=== PATIENT | female | born 1990 ===

== ENCOUNTER 2020-07-12 12:22 | Emergency (ER) | payer OTHER, SELFPAY ==
--- NOTE | 2020-07-12 | CT_ITS ---
EXAMINATION: CT HEAD WITHOUT CONTRAST CLINICAL INFORMATION: Headache. COMPARISON: None TECHNIQUE: Contiguous axial imaging was performed from the skull base to vertex without intravenous administration of contrast. This CT examination was performed using dose optimization techniques as appropriate, variously including the following: *Automated exposure control *Adjustment of mA and/or kV according to patient size (this includes techniques or standardized protocols for targeted exams where dose is matched to indication/reason for exam; i.e. extremities or head) *Use of iterative reconstruction technique DLP: 613 mGy-cm FINDINGS: There is no evidence of acute intracranial hemorrhage or territorial infarction. No abnormal mass effect or midline shift is seen. Dumas to white matter differentiation is well preserved. No extra-axial fluid collections are identified. Prominent patchy parafalcine areas of ossification noted. The ventricles are normal in size. There is no abnormal attenuation within the brain parenchyma. The osseous structures and soft tissues are normal. The mastoid air cells and visualized portions of the paranasal sinuses are well aerated. IMPRESSION: No acute intracranial pathology. Normal CT scan of the head.
--- NOTE | 2020-07-12 12:42 | ED.HA ---
HPI - Headache General Chief Complaint: Headache Stated Complaint: headache Time Seen by Provider: 07/12/20 12:42 Source: patient Mode of arrival: ambulatory Limitations: no limitations History of Present Illness HPI Narrative: 3 days gradual onset worst today, no trauma, no AC therapy, hx of migraines remotely MD elicited complaint: headache Onset (ago): day(s) (3) Onset description: gradually Location: right, left, temporal and occipital Severity: moderate Quality & Timing: throbbing Exacerbating factors: movement of head/neck Relieving factors: nothing Context: occurred at rest Treatments prior to arrival: acetaminophen and ibuprofen Related Data Allergies Allergy/AdvReac Type Severity Reaction Status Date / Time No Known Allergies Allergy Verified 07/12/20 12:26 Review of Systems Review of Systems: Constitutional : No Fever, No Chills, No Fatigue ENT/Mouth : No sore throat, No Rhinorrhea Eyes: No Eye Pain, No Swelling, No Redness Cardiovascular : No Chest Pain, No SOB, No Dyspnea on Exertion Respiratory : No Cough, No Sputum Gastrointestinal : No Nausea, No Vomiting, No Diarrhea, No abdominal Pain Genitourinary : No Dysuria, No Urinary Frequency, No Hematuria, Musculoskeletal : No joint pain, No Myalgias, No Joint Swelling Skin : No Skin Lesions, No rash Neuro : No Weakness, No Numbness, No Dizziness, positive Headache Psych : No Anxiety/Panic, No Depression Heme/Lymph: No Bruising, No Bleeding,No Lymphadenopathy Endocrine : No Polyuria, No Polydipsia All other systems reviewed and are negative PMFSH Past Medical History Medical History (Updated 07/12/20 @ 12:47 by Neyda Madrid DO) Gastritis Headache Ovarian cyst UTI (urinary tract infection) Social History Social History (Updated 07/12/20 @ 12:46 by Neyda Madrid DO) Alcohol intake: current Alcohol intake frequency: a few times a month Smoking Status: Never smoker Use of substances other than those prescribed or required for medical reasons: No Advance Directives: No Advance Directives Information Provided: Yes Physical Exam Vital Signs and I&O and Narrative: Vital Signs and I&O: Vital Signs Temp 97.7 F 07/12/20 13:14 Pulse 63 07/12/20 13:14 Resp 16 07/12/20 13:14 BP 97/57 L 07/12/20 13:14 Pulse Ox 99 07/12/20 13:14 Intake & Output 07/11/20 07/12/20 07/12/20 18:59 06:59 18:59 Weight 68.039 kg Body Mass Index 30.2 Appearance: Alert. Oriented X3. No acute distress. Eyes: Pupils equal, round and reactive to light. mild photophobia ENT: Pharynx normal. Neck: Normal inspection. Neck supple. no meningeal signs CVS: Normal heart rate and rhythm. Pulses normal. Respiratory: No respiratory distress. Breath sounds normal. Abdomen: Soft and nontender. Skin: Skin warm and dry. Normal skin color. Normal skin turgor. Extremities: No lower extremity edema. No lower extremity edema. Neuro: Oriented X 3. No motor deficit. No sensory deficit. Course Reevaluation(s) Reevaluation #1: no acute findings feels better stable for DC MDM - Headache MDM Narrative Medical decision making narrative: gradual onset headache no AC therapy, no fevers normal neuro exam, not toxic, very concerned will obtain CT head to r/o mass, IM toradol and PO fioricet given lack of fevers, presentation and gradual onset doubt [employer] infection or SAH
[2020-07-12 13:14] VITALS: BP 97/57; PULSE 63; RESP 16; TEMP 36.5; O2SAT 99; BMI 30.2
[2020-07-12] MEDS: Ketorolac Tromethamine 60 MG/2 ML VIAL IM (13:47)
== END 2020-07-12 13:59 | disposition home or self-care (01) ==
PROVIDERS: Emergency Provider Emergency Medicine; PCP Internal Medicine
DX: R51.9 Headache, unspecified (principal)
CPT/HCPCS: 70450; 96372; 99284; J1885

== ENCOUNTER 2020-10-09 12:57 | Outpatient (REF) | payer OTHER, SELFPAY | END 2020-10-09 12:58 | disposition home or self-care (01) | LOC: HO.LAB 12:57 | PROVIDERS: Visit Provider Internal Medicine | DX: Z20.828 Contact with and (suspected) exposure to other viral communicable diseases (principal) | CPT/HCPCS: 36415; C9803; U0003 ==

== ENCOUNTER 2021-01-03 19:16 | Emergency (ER) | payer OTHER, SELFPAY ==
[2021-01-03 19:49] VITALS: BP 110/53; PULSE 74; RESP 18; TEMP 37.1; O2SAT 99; BMI 24.2
[2021-01-03 20:04] LABS: MANUAL DIFF FLAG NO
[2021-01-03 20:10] LABS: Basophils Percent Auto 0.3 % (0-2); Eosinophils Absolute Auto 0.1 X10*3/uL (0.0-0.4); Eosinophils Percent Auto 1.4 % (0-4); Hematocrit 38.4 % (37-47); Hemoglobin 12.7 g/dl (12.0-16.0); Imm Gran Abs Auto 0.01 X10*3/uL (0.00-0.03); Imm Gran Pct Auto 0.2 % (0.0-0.4); Lymphocytes Absolute Auto 1.7 X10*3/uL (1.2-4.9); Lymphocytes Percent Auto 26.2 % (20-40); Mean Corpuscular HGB Conc 33.1 g/dl (31.0-35.0); Mean Corpuscular Hemoglobin 30.5 pg (27.0-33.0); Mean Corpuscular Volume 92.3 fL (80-98); Mean Platelet Volume 9.5 fL (9.4-12.3); Monocytes Absolute Auto 0.5 X10*3/uL (0.1-1.2); Monocytes Percent Auto 7.3 % (2-11); Neutrophils Absolute Auto 4.2 X10*3/uL (2.0-8.3); Neutrophils Percent Auto 64.6 % (45-73); Platelet Count 290 X10*3/uL (160-400); Red Blood Count 4.16 X10*6/uL (4.20-5.50); Red Cell Distribution Width 12.6 % (11.0-16.0); White Blood Count 6.5 X10*3/uL (4.8-10.8)
[2021-01-03 20:30] LABS: Anion Gap 13 (12-20); Blood Urea Nitrogen 13 mg/dL (9-16); Calcium 9.1 mg/dL (8.4-10.2); Carbon Dioxide 26 mmol/L (22-29); Chloride 103 mmol/L (96-108); Creatinine Clr Calc Pharmacy 73.9; Estimated Glomerular Filt Rate > 60; Glucose Random 113 mg/dL (60-115); Potassium 3.9 mmol/L (3.3-5.1); Sodium 138 mmol/L (135-145)
== END 2021-01-03 23:46 | disposition left against medical advice (07) ==
LOC: HO.ED 23:44
PROVIDERS: Emergency Medicine Emergency Medical Services; Emergency Provider Emergency Medicine; PCP Internal Medicine
DX: R51.9 Headache, unspecified (principal)
CPT/HCPCS: 36415; 80048; 85025; 99282; 99283

== ENCOUNTER 2021-01-05 06:52 | Emergency (ER) | payer OTHER, SELFPAY ==
--- NOTE | ~2021-01-05 | CT_ITS ---
EXAMINATION: CT HEAD WITHOUT CONTRAST CLINICAL INFORMATION: Headache COMPARISON: Previous head CT July 2020 TECHNIQUE: Contiguous axial imaging was performed from the skull base to vertex without intravenous administration of contrast. This CT examination was performed using dose optimization techniques as appropriate, variously including the following: *Automated exposure control *Adjustment of mA and/or kV according to patient size (this includes techniques or standardized protocols for targeted exams where dose is matched to indication/reason for exam; i.e. extremities or head) *Use of iterative reconstruction technique DLP: 630 mGy-cm FINDINGS: There is no evidence of an extra-axial collection. There is no evidence of intra-axial or extra-axial hemorrhage. There are scattered areas of dural ossification that are stable. The largest is in the right parafalcine region measuring 0.7 x 1.3 cm. The ventricles and extra-axial CSF spaces are appropriate. Dumas-white matter differentiation is normal. No mass, mass effect or infarct is seen. Review of bone windows is normal. Visualized paranasal sinuses, mastoid air cells and middle ears are clear. CT/CT head/brain wo con IMPRESSION: No acute findings.
[2021-01-05 07:19] VITALS: BP 111/58; PULSE 66; RESP 16; TEMP 36.7; O2SAT 100; BMI 23.8
--- NOTE | 2021-01-05 07:43 | ED.HA ---
HPI - Headache General Chief Complaint: Headache Stated Complaint: HEADACHE Time Seen by Provider: 01/05/21 07:38 Source: patient Mode of arrival: ambulatory Limitations: no limitations History of Present Illness HPI Narrative: This is a 30 years old the female presented to the emergency department with complaining of a headache. She states to me that the headache started 4- 5 days ago Denies any fever, neck pain, vomiting . The patient had prio visitor to this emergency room Jul 2020 elicited complaint: headache Onset (ago): day(s) (4) Onset description: gradually Severity: moderate Quality & Timing: aching Related Data Previous Rx's Medication Instructions Recorded esotenlvep-yspikipdewqub-uyvy 2 tab PO Q6H PRN #14 tab 07/12/20 cyclobenzaprine 10 mg PO TID PRN #14 tab 07/12/20 Allergies Allergy/AdvReac Type Severity Reaction Status Date / Time No Known Allergies Allergy Verified 01/03/21 19:48 Review of Systems Review of Systems: Yes all other systems are reviewed and are negative Cardiovascular: Cardiovascular: Reports no additional cardiovascular complaints Gastrointestinal: Gastrointestinal: Reports no additional gastrointestinal complaints Musculoskeletal: Musculoskeletal: Reports no additional musculoskeletal complaints Neurologic: Reports system reviewed and no additional complaints, except as documented PMFSH Past Medical History Medical History Gastritis Headache Ovarian cyst UTI (urinary tract infection) Social History Social History Alcohol intake: never Smoking Status: Never smoker Smoked in Last 30 Days: No Use of substances other than those prescribed or required for medical reasons: No Advance Directives: No Advance Directives Information Provided: No Physical Exam Vital Signs: Vital Signs: Last Vital Signs Temp 98.0 F 01/05/21 07:19 Pulse 54 01/05/21 09:09 Resp 14 01/05/21 09:09 BP 90/55 L 01/05/21 09:09 Pulse Ox 99 01/05/21 09:09 Body Mass Index 23.8 Const: Other: She looks well no distress sitting comfortable in the stretcher General: cooperative Orientation/consciousness: oriented to person, oriented to place, oriented to time and patient oriented x3 HENMT: Head: Yes normal to inspection Eyes: General: appearance normal, both eyes and all related structures Visual Proctor: normal visual proctor by confrontation Neck: Other: Neck is supple full range of motion no stiffness whatsoever Chest: Chest palpation & inspection: normal inspection of the chest Resp: Auscultation: clear to auscultation bilaterally Cardio: Jugular venous distension: no JVD Rate: regular rate GI: Inspection: Yes normal to inspection Palpation (GI): Soft to palpation, nontender and no guarding Percussion: Yes normal to percussion Skin: General skin exam: no rashes or lesions noted and elasticity normal Neuro: General: oriented to person, oriented to place, oriented to time and patient oriented x3 Extrem: General: Yes normal to inspection and Yes full ROM Course Reevaluation(s) Reevaluation #1: Patient is feeling much better no headache, CT head negative labs are within normal limit she has no meningeal sign, she is afebrile headache is gradual no sudden unlikely subarachnoid Time: 09:14 MDM - Headache Lab Data Result diagrams: 01/05/21 07:56 01/05/21 07:56 Labs: Lab Results 01/05/21 01/05/21 Range/Units 07:56 07:56 WBC 5.2 (4.8-10.8) X10*3/uL RBC 4.16 L (4.20-5.50) X10*6/uL Hgb 12.6 (12.0-16.0) g/dl Hct 38.8 (37-47) % MCV 93.3 (80-98) fL MCH 30.3 (27.0-33.0) pg MCHC 32.5 (31.0-35.0) g/dl RDW 12.6 (11.0-16.0) % Plt Count 259 (160-400) X10*3/uL MPV 9.3 L (9.4-12.3) fL Immature Gran % (Auto) 0.4 (0.0-0.4) % Neut % (Auto) 67.3 (45-73) % Lymph % (Auto) 23.1 (20-40) % [place] % (Auto) 7.7 (2-11) % Eos % (Auto) 1.3 (0-4) % Baso % (Auto) 0.2 (0-2) % Lymph # (Auto) 1.2 (1.2-4.9) X10*3/uL [place] # (Auto) 0.4 (0.1-1.2) X10*3/uL Eos # (Auto) 0.1 (0.0-0.4) X10*3/uL Baso # (Auto) 0.0 (0.0-0.2) X10*3/uL Abs Immat Gran (auto) 0.02 (0.00-0.03) X10*3/uL Absolute Neuts (auto) 3.5 (2.0-8.3) X10*3/uL Absolute Nucleated RBC 0.000 (0.0-0.012) X10*3/uL Nucleated RBC % (auto) 0.0 (0.0-0.2) /100WBC Sodium 139 (135-145) mmol/L Potassium 4.3 (3.3-5.1) mmol/L Chloride 105 (96-108) mmol/L Carbon Dioxide 27 (22-29) mmol/L Anion Gap 11 L (12-20) BUN 13 (9-16) mg/dL Creatinine 0.77 (0.5-1.4) mg/dL Estim Creat Clear Calc 83.7 Estimated GFR > 60 Random Glucose 86 (60-115) mg/dL Calcium 8.6 (8.4-10.2) mg/dL Total Bilirubin 0.2 (0.0-1.0) mg/dL AST 12 (5-31) U/L ALT 11 (0-31) U/L Alkaline Phosphatase 121 H (39-117) U/L Total Protein 6.6 (6.5-8.0) g/dL Albumin 4.0 (3.5-5.0) g/dL Beta HCG, Quant < 2 mIU/mL Imaging Data CT scan - head: Radiologist's impression: There is no evidence of an extra-axial collection. There is no evidence of intra-axial or extra-axial hemorrhage. There are scattered areas of dural ossification that are stable. The largest is in the right parafalcine region measuring 0.7 x 1.3 cm. The ventricles and extra-axial CSF spaces are appropriate. Dumas-white matter differentiation is normal. No mass, mass effect or infarct is seen. Review of bone windows is normal. Visualized paranasal sinuses, mastoid air cells and middle ears are clear. CT/CT head/brain wo con IMPRESSION: No acute findings. Dictated By:ABEL Discharge Plan Discharge Prescriptions: No Action tsnevsjnmr-kzqibukouuswd-mghz 50-325-40 mg tablet 2 tab PO Q6H PRN (Reason: pain) Qty: 14 RF: 0 cyclobenzaprine 10 mg tablet 10 mg PO TID PRN (Reason: muscle spasm) Qty: 14 RF: 0
[2021-01-05 07:59] LABS: MANUAL DIFF FLAG NO
[2021-01-05] MEDS: Ketorolac Tromethamine 15 MG/ML VIAL IV (07:59)
[2021-01-05 08:02] LABS: Basophils Percent Auto 0.2 % (0-2); Eosinophils Absolute Auto 0.1 X10*3/uL (0.0-0.4); Eosinophils Percent Auto 1.3 % (0-4); Hematocrit 38.8 % (37-47); Hemoglobin 12.6 g/dl (12.0-16.0); Imm Gran Abs Auto 0.02 X10*3/uL (0.00-0.03); Imm Gran Pct Auto 0.4 % (0.0-0.4); Lymphocytes Absolute Auto 1.2 X10*3/uL (1.2-4.9); Lymphocytes Percent Auto 23.1 % (20-40); Mean Corpuscular HGB Conc 32.5 g/dl (31.0-35.0); Mean Corpuscular Hemoglobin 30.3 pg (27.0-33.0); Mean Corpuscular Volume 93.3 fL (80-98); Mean Platelet Volume 9.3 fL (9.4-12.3); Monocytes Absolute Auto 0.4 X10*3/uL (0.1-1.2); Monocytes Percent Auto 7.7 % (2-11); Neutrophils Absolute Auto 3.5 X10*3/uL (2.0-8.3); Neutrophils Percent Auto 67.3 % (45-73); Platelet Count 259 X10*3/uL (160-400); Red Blood Count 4.16 X10*6/uL (4.20-5.50); Red Cell Distribution Width 12.6 % (11.0-16.0); White Blood Count 5.2 X10*3/uL (4.8-10.8)
[2021-01-05 08:26] LABS: Alanine Aminotransferase 11 U/L (0-31); Alkaline Phosphatase 121 U/L (39-117); Anion Gap 11 (12-20); Aspartate Amino Transferase 12 U/L (5-31); Bilirubin Total 0.2 mg/dL (0.0-1.0); Blood Urea Nitrogen 13 mg/dL (9-16); Calcium 8.6 mg/dL (8.4-10.2); Carbon Dioxide 27 mmol/L (22-29); Chloride 105 mmol/L (96-108); Creatinine Clr Calc Pharmacy 83.7; Estimated Glomerular Filt Rate > 60; Glucose Random 86 mg/dL (60-115); Potassium 4.3 mmol/L (3.3-5.1); Sodium 139 mmol/L (135-145); Total Protein 6.6 g/dL (6.5-8.0)
[2021-01-05 08:33] LABS: HCG Quantitative < 2 mIU/mL
[2021-01-05 09:09] VITALS: BP 90/55; PULSE 54; RESP 14; O2SAT 99
== END 2021-01-05 09:36 | disposition home or self-care (01) ==
PROVIDERS: Emergency Provider Emergency Medicine; PCP Internal Medicine
DX: R51.9 Headache, unspecified (principal); Z79.899 Other long term (current) drug therapy
CPT/HCPCS: 36415; 70450; 80053; 84702; 85025; 96360; 96365; 99284; J1885

== ENCOUNTER 2021-01-31 08:03 | Emergency (ER) | payer OTHER, SELFPAY ==
[2021-01-31 08:54] VITALS: BP 104/57; PULSE 68; RESP 18; TEMP 36.5; O2SAT 97; BMI 24.2
--- NOTE | 2021-01-31 09:14 | PC.NURSE ---
Pt reports abd pain/epigastric pain x 2 weeks, unrelieved by prilosec. Pt reports pain is nearly constant, burning and pressure. Reports no changes in bowel movements, denies N/V/D. Last BM this morning. Reports pain is worse when she lays down pt rates pain 8/10, abd soft NT, +bowel sounds x 4. Iv access obtained, labs drawn and sent, awaiting primary evsl.
[2021-01-31 09:19] LABS: MANUAL DIFF FLAG NO
[2021-01-31 09:28] LABS: Basophils Percent Auto 0.4 % (0-2); Eosinophils Percent Auto 0.7 % (0-4); Hematocrit 41.7 % (37-47); Hemoglobin 13.6 g/dl (12.0-16.0); Imm Gran Abs Auto 0.02 X10*3/uL (0.00-0.03); Imm Gran Pct Auto 0.4 % (0.0-0.4); Lymphocytes Absolute Auto 1.1 X10*3/uL (1.2-4.9); Mean Corpuscular HGB Conc 32.6 g/dl (31.0-35.0); Mean Corpuscular Hemoglobin 30.7 pg (27.0-33.0); Mean Corpuscular Volume 94.1 fL (80-98); Mean Platelet Volume 9.4 fL (9.4-12.3); Monocytes Absolute Auto 0.4 X10*3/uL (0.1-1.2); Monocytes Percent Auto 7.5 % (2-11); Platelet Count 305 X10*3/uL (160-400); Red Blood Count 4.43 X10*6/uL (4.20-5.50); Red Cell Distribution Width 12.7 % (11.0-16.0); White Blood Count 5.6 X10*3/uL (4.8-10.8)
[2021-01-31 09:44] LABS: Alanine Aminotransferase 9 U/L (0-31); Albumin Level 4.3 g/dL (3.5-5.0); Alkaline Phosphatase 118 U/L (39-117); Anion Gap 11 (12-20); Aspartate Amino Transferase 14 U/L (5-31); Bilirubin Direct 0.2 mg/dL (0.0-0.5); Bilirubin Total 0.4 mg/dL (0.0-1.0); Blood Urea Nitrogen 21 mg/dL (9-16); Calcium 9.1 mg/dL (8.4-10.2); Carbon Dioxide 26 mmol/L (22-29); Chloride 105 mmol/L (96-108); Creatinine Clr Calc Pharmacy 84.1; Estimated Glomerular Filt Rate > 60; Glucose Random 86 mg/dL (60-115); Lipase 39 U/L (8-78); Potassium 4.3 mmol/L (3.3-5.1); Sodium 138 mmol/L (135-145); Total Protein 6.9 g/dL (6.5-8.0)
[2021-01-31] MEDS: Lidocaine HCl Viscous 2 % 15 ML SOLUTION MUCOUS MEM (10:11)
[2021-01-31] MEDS: Famotidine 20 MG TABLET PO (10:11)
[2021-01-31] MEDS: Magnesium Hydrox/Alum Hydrox 30 ML ORAL.SUSP PO (10:11)
--- NOTE | 2021-01-31 10:17 | PC.NURSE ---
Pt medicated with pepcid and GI cocktail as charted. Urine provided by pt, collected and sent to lab, results pending.
[2021-01-31 10:24] LABS: Glucose Urine UA NEG (NEG); Leukocyte Esterase Urine TRACE (NEG); Nitrite Urine NEG (NEG); PH 6.5 (5.0-8.0); Specific Gravity - Urine 1.025 (1.005-1.025); UACC Culture Trigger YES; Urine Blood TRACE (NEG); Urine Ketones NEG (NEG); Urine Protein NEG (NEG-TRACE)
[2021-01-31 10:25] LABS: Appearance Urine CLEAR; Color Urine YELLOW
[2021-01-31 10:27] LABS: Urine Pregnancy NEGATIVE (NEGATIVE)
[2021-01-31 10:28] LABS: UPreg QC Valid YES
[2021-01-31 10:34] LABS: Bacteria Urine TRACE /LPF; Squamous Epithelial Cell Urine 2+ /LPF
--- NOTE | 2021-01-31 10:36 | ED_ITS ---
HPI - Abdominal Pain General Chief Complaint: Abdominal Pain Stated Complaint: abd pain Time Seen by Provider: 01/31/21 09:52 Source: patient Mode of arrival: ambulatory Limitations: no limitations History of Present Illness HPI narrative: Patient is a 30-year-old female with past medical history of gastritis and ovarian cysts with epigastric pain x2 weeks, has been taking Prilosec with minimal relief. Denies nausea vomiting diarrhea fevers, chest pain, shortness of breath, headache. Is eating and drinking but a reduced amount. Related Data Previous Rx's Medication Instructions Recorded citcuxkypj-agjyffmyssuog-lcnc 2 tab PO Q6H PRN #14 tab 07/12/20 cyclobenzaprine 10 mg PO TID PRN #14 tab 07/12/20 naproxen [Naprosyn] 500 mg PO BID PRN #20 tab 01/05/21 omeprazole 20 mg PO DAILY #14 cap 01/31/21 Allergies Allergy/AdvReac Type Severity Reaction Status Date / Time No Known Allergies Allergy Verified 01/03/21 19:48 Review of Systems Review of Systems Yes all other systems are reviewed and are negative Physical Exam Vital Signs: Vital Signs: Last Vital Signs Temp 98.6 F 01/31/21 10:54 Pulse 62 01/31/21 10:54 Resp 16 01/31/21 10:54 BP 98/60 01/31/21 10:54 Pulse Ox 100 01/31/21 10:54 Body Mass Index 24.2 Const: General: cooperative, healthy appearing, comfortable and no acute distress Nutritional Appearance: average body habitus Orientation/consciousness: patient oriented x3 Eyes: General: appearance normal, both eyes and all related structures Neck: Neck: Yes normal visual inspection and Yes full ROM Cardio: Rate: regular rate Rhythm: regular rhythm Heart sounds: normal S1 and S2 GI: Inspection: Yes normal to inspection Palpation (GI): Soft to palpation and Tenderness to palpation present (GI) in the epigastrum Neuro: General: patient oriented x3 Course Course Course Narrative: 30-year-old female past medical history of gastritis an ovarian cyst presents with 2 weeks of epigastric pain. Vital signs are stable, physical exam revealed epigastric tenderness. Will give GI cocktail and reassess. Reevaluation(s) Reevaluation #1: Patient states she is feeling much better after the GI cocktail, was discharged home. Time: 11:08 MDM - Abdominal Pain Lab Data Result diagrams: 01/31/21 09:12 01/31/21 09:12 Labs: Lab Results 01/31/21 01/31/21 01/31/21 Range/Units 09:12 09:12 09:12 WBC 5.6 (4.8-10.8) X10*3/uL RBC 4.43 (4.20-5.50) X10*6/uL Hgb 13.6 (12.0-16.0) g/dl Hct 41.7 (37-47) % MCV 94.1 (80-98) fL MCH 30.7 (27.0-33.0) pg MCHC 32.6 (31.0-35.0) g/dl RDW 12.7 (11.0-16.0) % Plt Count 305 (160-400) X10*3/uL MPV 9.4 (9.4-12.3) fL Immature Gran % (Auto) 0.4 (0.0-0.4) % Neut % (Auto) 72.0 (45-73) % Lymph % (Auto) 19.0 L (20-40) % [place] % (Auto) 7.5 (2-11) % Eos % (Auto) 0.7 (0-4) % Baso % (Auto) 0.4 (0-2) % Lymph # (Auto) 1.1 L (1.2-4.9) X10*3/uL [place] # (Auto) 0.4 (0.1-1.2) X10*3/uL Eos # (Auto) 0.0 (0.0-0.4) X10*3/uL Baso # (Auto) 0.0 (0.0-0.2) X10*3/uL Abs Immat Gran (auto) 0.02 (0.00-0.03) X10*3/uL Absolute Neuts (auto) 4.0 (2.0-8.3) X10*3/uL Absolute Nucleated RBC 0.000 (0.0-0.012) X10*3/uL Nucleated RBC % (auto) 0.0 (0.0-0.2) /100WBC Hold Blue Top SEE NOTE Sodium 138 (135-145) mmol/L Potassium 4.3 (3.3-5.1) mmol/L Chloride 105 (96-108) mmol/L Carbon Dioxide 26 (22-29) mmol/L Anion Gap 11 L (12-20) BUN 21 H D (9-16) mg/dL Creatinine 0.73 (0.5-1.4) mg/dL Estim Creat Clear Calc 84.1 Estimated GFR > 60 Random Glucose 86 (60-115) mg/dL Calcium 9.1 (8.4-10.2) mg/dL Total Bilirubin 0.4 (0.0-1.0) mg/dL Direct Bilirubin 0.2 (0.0-0.5) mg/dL AST 14 (5-31) U/L ALT 9 (0-31) U/L Alkaline Phosphatase 118 H (39-117) U/L Total Protein 6.9 (6.5-8.0) g/dL Albumin 4.3 (3.5-5.0) g/dL Lipase 39 (8-78) U/L Urine Color Urine Appearance Urine pH (5.0-8.0) Ur Specific [place] (1.005-1.025) Urine Protein (NEG-TRACE) MG/DL Urine Glucose (UA) (NEG) MG/DL Urine Ketones (NEG) MG/DL Urine Blood (NEG) Urine Nitrite (NEG) Ur Leukocyte Esterase (NEG) Urine RBC (0) /HPF Urine WBC (0-4) /HPF Ur Squamous Epith Cells /LPF Urine Bacteria /LPF Urine Test (NEGATIVE) 01/31/21 01/31/21 Range/Units 10:13 10:13 WBC (4.8-10.8) X10*3/uL RBC (4.20-5.50) X10*6/uL Hgb (12.0-16.0) g/dl Hct (37-47) % MCV (80-98) fL MCH (27.0-33.0) pg MCHC (31.0-35.0) g/dl RDW (11.0-16.0) % Plt Count (160-400) X10*3/uL MPV (9.4-12.3) fL Immature Gran % (Auto) (0.0-0.4) % Neut % (Auto) (45-73) % Lymph % (Auto) (20-40) % [place] % (Auto) (2-11) % Eos % (Auto) (0-4) % Baso % (Auto) (0-2) % Lymph # (Auto) (1.2-4.9) X10*3/uL [place] # (Auto) (0.1-1.2) X10*3/uL Eos # (Auto) (0.0-0.4) X10*3/uL Baso # (Auto) (0.0-0.2) X10*3/uL Abs Immat Gran (auto) (0.00-0.03) X10*3/uL Absolute Neuts (auto) (2.0-8.3) X10*3/uL Absolute Nucleated RBC (0.0-0.012) X10*3/uL Nucleated RBC % (auto) (0.0-0.2) /100WBC Hold Blue Top Sodium (135-145) mmol/L Potassium (3.3-5.1) mmol/L Chloride (96-108) mmol/L Carbon Dioxide (22-29) mmol/L Anion Gap (12-20) BUN (9-16) mg/dL Creatinine (0.5-1.4) mg/dL Estim Creat Clear Calc Estimated GFR Random Glucose (60-115) mg/dL Calcium (8.4-10.2) mg/dL Total Bilirubin (0.0-1.0) mg/dL Direct Bilirubin (0.0-0.5) mg/dL AST (5-31) U/L ALT (0-31) U/L Alkaline Phosphatase (39-117) U/L Total Protein (6.5-8.0) g/dL Albumin (3.5-5.0) g/dL Lipase (8-78) U/L Urine Color YELLOW Urine Appearance CLEAR Urine pH 6.5 (5.0-8.0) Ur Specific [place] 1.025 (1.005-1.025) Urine Protein NEG (NEG-TRACE) MG/DL Urine Glucose (UA) NEG (NEG) MG/DL Urine Ketones NEG (NEG) MG/DL Urine Blood TRACE (NEG) Urine Nitrite NEG (NEG) Ur Leukocyte Esterase TRACE H (NEG) Urine RBC 1-4 (0) /HPF Urine WBC 1-4 (0-4) /HPF Ur Squamous Epith Cells 2+ /LPF Urine Bacteria TRACE /LPF Urine Test NEGATIVE (NEGATIVE) Discharge Plan Discharge Clinical Impression: GERD (gastroesophageal reflux disease) Qualifiers: Esophagitis presence: esophagitis presence not specified Qualified Code(s): K21.9 - Gastro-esophageal reflux disease without esophagitis Patient Disposition: Home, Self-Care Instructions: Gastroesophageal Reflux Disease (ED) Additional Instructions: As discussed, this is likely GERD, I will give you a 2 week prescription for omeprazole. Please make an appointment to follow-up with her PCP because of this medication works they should be able to continue it for you and if medication does not work, they should be able to find another medication for you. My also ask your PCP to be tested for H pylori as it is common. Please read the attached instructions to avoid exacerbating your GERD. Prescriptions: New omeprazole 20 mg capsule,delayed release(DR/EC) 20 mg PO DAILY Qty: 14 RF: 0 No Action naproxen [Naprosyn] 500 mg tablet 500 mg PO BID PRN (Reason: pain) Qty: 20 RF: 0 jatpfelinx-tduyaxozttvec-getl 50-325-40 mg tablet 2 tab PO Q6H PRN (Reason: pain) Qty: 14 RF: 0 cyclobenzaprine 10 mg tablet 10 mg PO TID PRN (Reason: muscle spasm) Qty: 14 RF: 0 Referrals: Roberta Mejias MD [Primary Care Provider] - 2 weeks (f/u GERD) FORMERLY [facility], 1928–1983 Past Medical History Medical History Gastritis Headache Ovarian cyst UTI (urinary tract infection) Social History Social History Alcohol intake: never Smoking Status: Never smoker Use of substances other than those prescribed or required for medical reasons: No Advance Directives: No Advance Directives Information Provided: No
--- NOTE | 2021-01-31 10:53 | PC.NURSE ---
pt reports decrease in pain post gi cocktail, reports pain 5/10 down from 8/10
[2021-01-31 10:54] VITALS: BP 98/60; PULSE 62; RESP 16; TEMP 37; O2SAT 100
== END 2021-01-31 11:21 | disposition home or self-care (01) ==
PROVIDERS: Emergency Provider Emergency Medicine Emergency Medical Services; PCP Internal Medicine
DX: K21.9 Gastro-esophageal reflux disease without esophagitis (principal); Z79.899 Other long term (current) drug therapy
CPT/HCPCS: 36415; 80053; 80076; 81001; 81003; 81025; 82248; 83690; 85025; 87086; 99284; 99285

== ENCOUNTER 2021-03-30 04:13 | Emergency (ER) | payer OTHER, SELFPAY ==
[2021-03-30 04:24] VITALS: BP 111/56; PULSE 74; RESP 16; TEMP 37; O2SAT 99; BMI 24.2
[2021-03-30] MEDS: 0.9 % Sodium Chloride 1,000 ML 999 ML IV (05:17)
[2021-03-30 05:18] VITALS: BP 101/67; PULSE 61; RESP 16; TEMP 36.6; O2SAT 99
[2021-03-30] MEDS: diphenhydrAMINE HCL 50 MG/ML VIAL IVPUSH (05:18)
[2021-03-30] MEDS: Metoclopramide HCl 10 MG/2 ML VIAL IVPUSH (05:18)
[2021-03-30] MEDS: Ketorolac Tromethamine 30 MG/ML VIAL IVPUSH (05:18)
--- NOTE | 2021-03-30 06:32 | PC.NURSE ---
CHECKED ON REMAINING IV FLUID IN BAG, PT SLEEPING.
--- NOTE | 2021-03-30 06:45 | ED.HA ---
HPI - Headache General Chief Complaint: Headache Stated Complaint: migraine for about 3 days Time Seen by Provider: 03/30/21 04:48 Source: patient Mode of arrival: ambulatory Limitations: no limitations History of Present Illness HPI Narrative: 30-year-old female who presents emergency department for evaluation headache x3 days. Patient states that the headache started 3 days prior and came on gradually and has gotten progressively worse. She states that the pain is located in the left side of her head. She describes as a pressure pain which is 8/10 at its worst. The pain is associated with photophobia, photophobia and weakness. The patient states that she gets headaches every to 2 months and has had to come to the emergency department in the past for these headaches. She denied fever, chills, nausea, vomiting, chest pain or shortness of breath, weakness or numbness. Related Data Previous Rx's Medication Instructions Recorded [id number]-zpqnpmhaaszld-ilou 2 tab PO Q6H PRN #14 tab 07/12/20 cyclobenzaprine 10 mg PO TID PRN #14 tab 07/12/20 naproxen [Naprosyn] 500 mg PO BID PRN #20 tab 01/05/21 omeprazole 20 mg PO DAILY #14 cap 01/31/21 Allergies Allergy/AdvReac Type Severity Reaction Status Date / Time No Known Allergies Allergy Verified 03/30/21 04:24 Review of Systems Review of Systems: Yes all other systems are reviewed and are negative [facility] Past Medical History [facility] Narrative: Social history: The patient denies tobacco, alcohol and drug use. Medical History Gastritis Headache Ovarian cyst UTI (urinary tract infection) Social History Social History Alcohol intake: never Advance Directives: No Advance Directives Information Provided: No Patient : No Physical Exam Vital Signs: Vital Signs: Last Vital Signs Temp 97.8 F 03/30/21 05:18 Pulse 61 03/30/21 05:18 Resp 16 03/30/21 05:18 BP 101/67 03/30/21 05:18 Pulse Ox 99 03/30/21 05:18 Body Mass Index 24.2 Const: General: cooperative and healthy appearing Orientation/consciousness: oriented to person and oriented to place Limitations: no limitations HENMT: Head: Yes normal to inspection, Yes normocephalic and Yes atraumatic Ears: external ears normal General nose exam: Normal external nose present Face and sinus: Yes normal facial exam Mouth: Normal oral and palatal mucosa present Throat: Yes posterior oropharynx normal Eyes: Periorbital: periorbital findings normal Eyelids: Yes eyelids normal Conjunctivae: conjunctivae normal Sclerae: sclerae normal Corneas: corneas normal Pupils: Equal, round and reactive pupils present Direct Ophthalmoscopy: normal light reflex Neck: Neck: Yes full ROM, Yes no lymphadenopathy, Yes no meningeal signs, Yes trachea midline and Yes supple Chest: Chest palpation & inspection: normal inspection of the chest and normal palpation of entire chest wall Resp: Effort & Inspection: normal respiratory effort and able to speak in complete sentences Auscultation: clear to auscultation bilaterally Cardio: Rate: regular rate Rhythm: regular rhythm Heart sounds: S1 normal heart sound present, S2 normal heart sound present and no murmurs GI: Inspection: Yes normal to inspection Palpation (GI): Soft to palpation, nontender, no guarding, not rigid and No hepatosplenomegaly present : General: Yes no CVA tenderness Back/Spine/Pelvis: Back: no CVA tenderness Cervical Spine: normal cervical lordosis Thoracic/Lumbar Spine: thoracic and lumbar spine normal to inspection Skin: Lesions: no lesions Rashes: no rashes Wounds: no wounds Neuro: General: oriented to person, oriented to place and no meningeal signs Cranial nerves: Yes CN's II-XII intact bilaterally and Yes Equal, round and reactive pupils present Cognition (Neuro): normal cognition Motor exam (neuro): 5/5 motor strength present throughout Extrem: General: Yes normal to inspection and Yes full ROM Psych: Appearance: well kempt Mental Status: mental status grossly normal Speech and movement: Normal speech and movement present Affect: normal affect Attitude: cooperative Thought process: Normal thought process present Thought content: Normal thought content present Course Course Course Narrative: 30-year-old female who has a history of headaches who presents emergency department for evaluation of headache x3 days. Patient's physical examination was unremarkable. Patient's presentation is consistent with a migraine-like syndrome. The patient was treated with Toradol 30 mg IV, Benadryl 50 mg IV, and Reglan 10 mg IV. 0648: Patient states that her headache has completely resolved. Patient was started on the following regimen for headaches: Regular and 10 mg orally, Benadryl 50 mg orally and Excedrin migraine 1 pill orally. The patient was given verbal and printed instructions prior to discharge. The patient was advised to follow-up with their PCP in 2 days and to return to the emergency department if their symptoms get worse or if they develop any new symptoms that are concerning to them. Discharge Plan Discharge Clinical Impression: Headache Qualifiers: Headache type: unspecified Headache chronicity pattern: acute headache Intractability: not intractable Qualified Code(s): R51.9 - Headache, unspecified Patient Disposition: Home, Self-Care Instructions: Migraine Headache (ED) Additional Instructions: Take the following 3 medications together every 6 hours as needed for moderate to severe headache: Excedrin migraine, 1 pill orally Regular (metoclopramide) 10 mg, 1 pill orally Benadryl 25 mg pills, 2 pills orally These medications will make you sleepy. Do not work or drive after taking these medications. Lie down in a dark quiet room for 1 hour after taking these medications and this should help your headache resolved. Follow-up with your doctor in 2 days. Please return to the emergency department if your symptoms get worse or if you develop any symptoms that are concerning to you. Prescriptions: No Action naproxen [Naprosyn] 500 mg tablet 500 mg PO BID PRN (Reason: pain) Qty: 20 RF: 0 hngjpnucmg-pqquzbsokvdnn-koqb 50-325-40 mg tablet 2 tab PO Q6H PRN (Reason: pain) Qty: 14 RF: 0 cyclobenzaprine 10 mg tablet 10 mg PO TID PRN (Reason: muscle spasm) Qty: 14 RF: 0 omeprazole 20 mg capsule,delayed release(DR/EC) 20 mg PO DAILY Qty: 14 RF: 0
[2021-03-30 07:18] VITALS: BP 108/57; PULSE 70; RESP 18; TEMP 37.2; O2SAT 99
== END 2021-03-30 07:10 | disposition home or self-care (01) ==
PROVIDERS: Emergency Provider Emergency Medicine Emergency Medical Services; PCP Internal Medicine
DX: R51.9 Headache, unspecified (principal)
CPT/HCPCS: 96361; 96374; 96375; 99283; 99284; J1200; J1885; J2765

== ENCOUNTER 2021-05-10 21:32 | Emergency (ER) | payer MEDICAID, SELFPAY ==
--- NOTE | ~2021-05-10 | CT_ITS ---
EXAMINATION: CT HEAD WITHOUT CONTRAST CLINICAL INFORMATION: Headache COMPARISON: 01/05/2021 TECHNIQUE: Contiguous axial imaging was performed from the skull base to vertex without intravenous administration of contrast. This CT examination was performed using dose optimization techniques as appropriate, variously including the following: *Automated exposure control *Adjustment of mA and/or kV according to patient size (this includes techniques or standardized protocols for targeted exams where dose is matched to indication/reason for exam; i.e. extremities or head) *Use of iterative reconstruction technique DLP: 653 mGy-cm FINDINGS: There is no evidence of acute intracranial hemorrhage or territorial infarction. No abnormal mass effect or midline shift is seen. Dumas to white matter differentiation is well preserved. No extra-axial fluid collections are identified. The ventricles are normal in size. There is no abnormal attenuation within the brain parenchyma. The osseous structures and soft tissues are normal. The mastoid air cells and visualized portions of the paranasal sinuses are well aerated. CT/CT head/brain wo con IMPRESSION: No acute intracranial pathology.
[2021-05-10 22:01] VITALS: BP 112/43; PULSE 69; RESP 17; TEMP 36.9; O2SAT 97; BMI 23.4
--- NOTE | 2021-05-11 01:19 | ED_ITS ---
HPI - Headache General Chief Complaint: Headache Stated Complaint: headache Time Seen by Provider: 05/11/21 00:45 Source: patient Mode of arrival: ambulatory Limitations: no limitations History of Present Illness HPI Narrative: 30-year-old female came in for evaluation of headache. Patient started to have headache few weeks ago, headache is described as intermittent throbbing pain was to her right occipital area and sometimes feel it on left forehead area, pain last for less than a minute and then goes away, describes the headache as stabbing pain. Sometimes patient get blurry vision and feel dizzy with a headache. Last time patient had a headache was early this morning, patient now is asymptomatic. No history of cerebral aneurysm or malignancy, no family history of sudden at young age. Related Data Previous Rx's Medication Instructions Recorded pftxpxltzy-mejbwhumvmntz-lesuaxxo 2 tab PO Q6H PRN #14 tab 07/12/20 50 mg-325 mg-40 mg tablet cyclobenzaprine 10 mg tablet 10 mg PO TID PRN #14 tab 07/12/20 naproxen 500 mg tablet (Naprosyn) 500 mg PO BID PRN #20 tab 01/05/21 omeprazole 20 mg capsule,delayed 20 mg PO DAILY #14 cap 01/31/21 release Allergies Allergy/AdvReac Type Severity Reaction Status Date / Time No Known Allergies Allergy Verified 05/10/21 22:01 Review of Systems Review of Systems: All other systems are reviewed and are negative Constitutional: Reports as per HPI and Reports no additional constitutional complaints Eyes: Reports as per HPI and Reports no additional eye complaints Reports system reviewed and no additional complaints, except as documented Cardiovascular: Reports as per HPI and Reports no additional cardiovascular complaints Respiratory: Reports as per HPI and Reports no additional respiratory complaints Gastrointestinal: Reports as per HPI and Reports no additional gastrointestinal complaints Genitourinary: Reports no additional female genitourinary complaints Musculoskeletal: Reports no additional musculoskeletal complaints Skin/Breast: Reports system reviewed and no additional complaints, except as docu Psychiatric: Reports no additional psychiatric complaints Endocrine: Reports no additional endocrine complaints Hematologic/Lymphatic: Reports no additional hematologic/lymphatic complaints Allergic/Immunologic: Reports no additional allergic/immunologic complaints Reports system reviewed and no additional complaints, except as documented and Reports Abnormal speech present [facility] Past Medical History Medical History Gastritis Headache Ovarian cyst UTI (urinary tract infection) Social History Social History Alcohol intake: never Advance Directives: No Advance Directives Information Provided: No Patient : No Physical Exam Vital Signs: Vital Signs: Last Vital Signs Temp 98.5 F 05/10/21 22:01 Pulse 69 05/10/21 22:01 Resp 17 05/10/21 22:01 BP 112/43 L 05/10/21 22:01 Pulse Ox 97 05/10/21 22:01 Body Mass Index 23.4 Vital signs have been reviewed as appeared to be correct. Blood pressure normal. Heart rate normal. Respiration rate normal. Temperature normal. Oxygen saturation normal. Appearance: Alert. Oriented X3. No acute distress. Head: Normal external exam. Normocephalic. Atraumatic. No Leon signs noted. No raccoon eyes noted Eyes: PERRLA. EOMI. Conjunctiva and sclera normal. Eyelids normal. ENT: TM's Normal. Pharynx normal. Uvula midline. Moist mucous membranes. No trismus noted. No drooling noted. No muffled voice noted. Neck: Normal inspection. Neck supple. FROM. No adenopathy. Thyroid Normal. No meningeal signs. No neck mass noted. CVS: Normal heart rate and rhythm. Heart sound normal. No murmurs noted. Pulses normal throughout. Respiratory: No respiratory distress. Painless inspiration. Breath sounds nor mal. No wheezes/rales/rhonchi noted. Chest nontender. No accessory muscle usage noted or decreased air movement noted. Abdomen: Soft and nontender. Bowel sounds normal in all 4 quadrants. No distent ion noted. No organomegaly noted. No visible injury noted. Back: No CVA tenderness. Full range of motion noted. Skin: Skin warm and dry. Normal skin color. Normal skin turgor. No rashes/lesions/lacerations noted. Extremities: No lower extremity edema. Extremities exhibit normal range of motion. Extremities nontender. Neuro: Oriented X 3. Cranial nerve exam: II-XII are grossly intact No motor deficit. No sensory deficit. Reflexes normal. Course Course Course Narrative: A 30-year-old female came in with nonspecific headache for few weeks, in the emergency department patient has no symptoms, normal neuro exam, normal head CT. Will reassure the patient and discharged to follow-up with PCP and referred to neurologist if symptoms persist. MDM - Headache Imaging Data CT scan - head: Radiologist's impression: No acute intracranial pathology Discharge Plan Discharge Clinical Impression: Headache Qualifiers: Headache type: unspecified Headache chronicity pattern: episodic headache Intractability: not intractable Qualified Code(s): R51.9 - Headache, unspecified Patient Disposition: Home, Self-Care Instructions: Acute Headache (ED) Additional Instructions: Follow-up with your primary doctor if symptoms persist please request Neurology referral from your primary doctor. Prescriptions: No Action naproxen [Naprosyn] 500 mg tablet 500 mg PO BID PRN (Reason: pain) Qty: 20 RF: 0 pcgykyfbtf-euyfewwpsqygc-eeuq 50-325-40 mg tablet 2 tab PO Q6H PRN (Reason: pain) Qty: 14 RF: 0 cyclobenzaprine 10 mg tablet 10 mg PO TID PRN (Reason: muscle spasm) Qty: 14 RF: 0 omeprazole 20 mg capsule,delayed release(DR/EC) 20 mg PO DAILY Qty: 14 RF: 0 Referrals: Roberta Mejias MD [Primary Care Provider] - 2 days
== END 2021-05-11 01:47 | disposition home or self-care (01) ==
PROVIDERS: Emergency Provider Emergency Medicine; PCP Internal Medicine
DX: R51.9 Headache, unspecified (principal)
CPT/HCPCS: 70450; 99283; 99284

== ENCOUNTER 2021-10-06 17:54 | Emergency (ER) | payer MEDICAID, SELFPAY ==
[2021-10-06 20:03] VITALS: BP 101/66; PULSE 60; RESP 16; TEMP 36; O2SAT 96; BMI 24.2
[2021-10-06 20:29] LABS: COVID-19 Test Negative (Negative); IDNOW Serial# 9DD0AD1C
--- NOTE | 2021-10-06 21:26 | ED.HA ---
HPI - Headache General Chief Complaint: Headache Stated Complaint: headache and back pain Time Seen by Provider: 10/06/21 21:26 Source: patient Mode of arrival: ambulatory Limitations: no limitations History of Present Illness HPI Narrative: Patient complaining of headache for last 5 days with family history of migraine , also complaining of right flank pain no urinary complaints no fever no chills patient already been vaccinated against COVID no shortness of breath no nausea no vomiting slight light sensitive Related Data Previous Rx's Medication Instructions Recorded molasomkhd-ydztbvjypmkef-tromuthf 2 tab PO Q6H PRN #14 tab 07/12/20 50 mg-325 mg-40 mg tablet cyclobenzaprine 10 mg tablet 10 mg PO TID PRN #14 tab 07/12/20 naproxen 500 mg tablet (Naprosyn) 500 mg PO BID PRN #20 tab 01/05/21 omeprazole 20 mg capsule,delayed 20 mg PO DAILY #14 cap 01/31/21 release njrsvdbagl-spugplfphgrrk-wcprqgov 1 cap PO Q6H PRN #20 cap 10/06/21 50 mg-300 mg-40 mg capsule (Fioricet) Allergies Allergy/AdvReac Type Severity Reaction Status Date / Time No Known Allergies Allergy Verified 10/06/21 20:03 Review of Systems Review of Systems: Yes all other systems are reviewed and are negative PMFSH Past Medical History Medical History Gastritis Headache Ovarian cyst UTI (urinary tract infection) Social History Social History Alcohol intake: never Advance Directives: No Advance Directives Information Provided: Yes Physical Exam Vital Signs: Vital Signs: Last Vital Signs Temp 96.8 F 10/06/21 20:03 Pulse 60 10/06/21 20:03 Resp 16 10/06/21 20:03 BP 101/66 10/06/21 20:03 Pulse Ox 96 10/06/21 20:03 BMI result Body Mass Index 24.2 Appearance: Alert. Oriented X3. No acute distress. Eyes: PERRLA, ENT: Pharynx normal. Oral Mucosa moist Neck: Normal inspection. Neck supple. CVS: Normal heart rate and rhythm. Pulses normal. Abdomen: Soft and nontender. Bowel sounds are present, no mass palpable, slight right CVA tenderness Skin: Skin warm and dry. Normal skin color. Normal skin turgor. Extremities: No lower extremity edema. Neuro: Oriented X 3. MDM - Headache MDM Narrative Medical decision making narrative: Patient's history of migraine headaches seems like having similar episode urine is negative for UTI felt better after Fioricet will discharge patient home COVID-19 was negative Lab Data Attestation: I reviewed the patient's lab results. Labs: Lab Results 10/06/21 10/06/21 10/06/21 Range/Units 19:58 21:49 21:49 Urine Color YELLOW Urine Appearance HAZY Urine pH 7.0 (5.0-8.0) Ur Specific [place] 1.015 (1.005-1.025) Urine Protein NEG (NEG-TRACE) MG/DL Urine Glucose (UA) NEG (NEG) MG/DL Urine Ketones NEG (NEG) MG/DL Urine Blood NEG (NEG) Urine Nitrite NEG (NEG) Ur Leukocyte Esterase TRACE H (NEG) Urine RBC 0-2 (0) /HPF Urine WBC 1-4 (0-4) /HPF Ur Squamous Epith Cells 3+ /LPF Urine Bacteria NONE /LPF Urine Mucus 2+ /LPF Urine Test NEGATIVE (NEGATIVE) COVID-19 (MELITA) Negative (Negative) COVID-19 Clin Com See Note Discharge Plan Discharge Clinical Impression: Migraine Patient Disposition: Home, Self-Care Instructions: Migraine Headache (ED) Additional Instructions: Rest at home take medication as prescribed Prescriptions: New oierkfmqtw-petmbkbmbsxlp-mfyo [Fioricet] 50-300-40 mg capsule 1 cap PO Q6H PRN (Reason: headache) Qty: 20 RF: 0 No Action naproxen [Naprosyn] 500 mg tablet 500 mg PO BID PRN (Reason: pain) Qty: 20 RF: 0 ophnpefcdt-vibgbssoxmscp-yowm 50-325-40 mg tablet 2 tab PO Q6H PRN (Reason: pain) Qty: 14 RF: 0 cyclobenzaprine 10 mg tablet 10 mg PO TID PRN (Reason: muscle spasm) Qty: 14 RF: 0 omeprazole 20 mg capsule,delayed release(DR/EC) 20 mg PO DAILY Qty: 14 RF: 0 Interventions: ED Discharge Assessment Last Done: 10/06/21 23:27 Discharge Date/Time: 10/06/21 23:27
[2021-10-06] MEDS: Butalb/Acetamin/Caff 50/325/40 TABLET 1 TAB PO (21:44)
[2021-10-06 22:26] LABS: Appearance Urine HAZY; Color Urine YELLOW; Glucose Urine UA NEG (NEG); Leukocyte Esterase Urine TRACE (NEG); Nitrite Urine NEG (NEG); Specific Gravity - Urine 1.015 (1.005-1.025); UACC Culture Trigger YES; Urine Blood NEG (NEG); Urine Ketones NEG (NEG); Urine Protein NEG (NEG-TRACE)
[2021-10-06 22:36] LABS: UPreg QC Valid YES; Urine Pregnancy NEGATIVE (NEGATIVE)
[2021-10-06 22:51] LABS: RBC Urine 0-2 /HPF (0); Squamous Epithelial Cell Urine 3+ /LPF
[2021-10-06 22:52] LABS: Mucus Urine 2+ /LPF
== END 2021-10-06 23:27 | disposition home or self-care (01) ==
PROVIDERS: Emergency Provider Internal Medicine
DX: G43.909 Migraine, unspecified, not intractable, without status migrainosus (principal); Z20.822 Contact with and (suspected) exposure to COVID-19; Z79.899 Other long term (current) drug therapy
CPT/HCPCS: 36415; 81001; 81003; 81025; 87086; 87635; 99283

== ENCOUNTER 2022-06-12 10:49 | Outpatient (REF) | payer MEDICAID, SELFPAY ==
[2022-06-12 13:42] LABS: MANUAL DIFF FLAG NO
[2022-06-12 13:53] LABS: Basophils Percent Auto 0.4 % (0-2); Eosinophils Percent Auto 0.7 % (0-4); Hematocrit 41.5 % (37.0-47.0); Hemoglobin 13.5 g/dl (12.0-16.0); Imm Gran Abs Auto 0.02 X10*3/uL (0.00-0.03); Imm Gran Pct Auto 0.4 % (0.0-0.4); Lymphocytes Absolute Auto 1.3 X10*3/uL (1.2-4.9); Lymphocytes Percent Auto 23.7 % (20-40); Mean Corpuscular HGB Conc 32.5 g/dl (31.0-35.0); Mean Corpuscular Hemoglobin 30.3 pg (27.0-33.0); Mean Corpuscular Volume 93.3 fL (80.0-98.0); Mean Platelet Volume 10.1 fL (9.4-12.3); Monocytes Absolute Auto 0.5 X10*3/uL (0.1-1.2); Monocytes Percent Auto 8.6 % (2-11); Neutrophils Absolute Auto 3.6 x10*3/uL (2.0-8.3); Neutrophils Percent Auto 66.2 % (45-73); Platelet Count 321 X10*3/uL (160-400); Red Blood Count 4.45 X10*6/uL (4.20-5.50); Red Cell Distribution Width 12.6 % (11.0-16.0); White Blood Count 5.5 X10*3/uL (4.8-10.8)
[2022-06-12 14:06] LABS: Alanine Aminotransferase 13 U/L (0-31); Albumin Level 4.4 g/dL (3.5-5.0); Alkaline Phosphatase 91 U/L (39-117); Anion Gap 14 (12-20); Aspartate Amino Transferase 18 U/L (5-31); Bilirubin Total 0.4 mg/dL (0.0-1.0); Blood Urea Nitrogen 12 mg/dL (9-16); Calcium 9.1 mg/dL (8.4-10.2); Carbon Dioxide 27 mmol/L (22-29); Chloride 103 mmol/L (96-108); Cholesterol 168 mg/dL; Estimated Glomerular Filt Rate > 60; Glucose Fasting 85 mg/dL (60-99); HDL Cholesterol 59 mg/dL; LDL Cholesterol Calculated 100 mg/dl; Potassium 4.3 mmol/L (3.3-5.1); Sodium 140 mmol/L (135-145); Total Protein 7.3 g/dL (6.5-8.0); Triglycerides 45 mg/dL
[2022-06-12 14:22] LABS: Thyroid Stimulating Hormone 0.98 uIU/mL (0.32-4.0)
== END 2022-06-12 10:50 | disposition home or self-care (01) ==
LOC: HO.10HDL 10:49
PROVIDERS: Visit Provider Internal Medicine
DX: Z00.00 Encounter for general adult medical examination without abnormal findings (principal); Z13.31 Encounter for screening for depression; M77.12 Lateral epicondylitis, left elbow; M79.673 Pain in unspecified foot
CPT/HCPCS: 36415; 80053; 80061; 84443; 85025

== ENCOUNTER 2023-05-03 09:44 | Emergency (ER) | payer MEDICAID, SELFPAY ==
[2023-05-03 09:52] VITALS: BP 115/66; PULSE 81; RESP 16; TEMP 36.6; O2SAT 98; BMI 24.6
[2023-05-03 10:50] VITALS: BP 111/48; PULSE 98; RESP 16; TEMP 36.7; O2SAT 99
--- NOTE | 2023-05-03 10:58 | PC.NURSE ---
pt a&ox3, vss, pt verbalizing 9/10 headache that is localized to the left side of her head but pain radiates down towards her jaw - states that her left eye feels droopy at times. per pt - she states that she has hx of left sided facial paralysis and has previously been seen in the ED prior. neuros intact - able to speak in full sentences w/o difficulty, no facial paralysis/drooping noted, ambulates w/ a steady gait - no weakness noted. pt has seen PCP and prescribed naproxen as well as loratidine. pt verbalizes pain relief with medication for the first hour but after an hour the pain comes back. pt changing over into hospital attire.
--- NOTE | 2023-05-03 11:33 | ED.HA ---
HPI - Headache General Chief Complaint: Headache Stated Complaint: headache Time Seen by Provider: 05/03/23 10:52 Source: patient Mode of arrival: ambulatory Limitations: no limitations History of Present Illness HPI Narrative: 32-year-old female with a history of a trigeminal neuralgia, headache, gastritis, UTI presenting today with left-sided headache and facial pain x2 weeks. She reports scalp tenderness and facial pain that is isolated to the left druze, left cheek and left jaw with sensitivity to touch. Describes this as a pressure sensation/ sharp pain. Pain -07/15 She reports seeing her PCP for this and was prescribed naproxen and loratadine without relief. She reports a history of trigeminal neuralgia 5 years ago and states that this feels similar. Denies facial or head trauma. Denies rash, nausea, vomiting, blurred or double vision, vision loss, photosensitivity, dizziness, lightheadedness, myalgias. NIHSS-0 Related Data Previous Rx's Medication Instructions Recorded vbbylpyave-uugsbhwrrcbqf-pxmaobml 2 tab PO Q6H PRN pain #14 tabs 07/12/20 50 mg-325 mg-40 mg tablet cyclobenzaprine 10 mg tablet 10 mg PO TID PRN muscle spasm #14 07/12/20 tabs naproxen 500 mg tablet (Naprosyn) 500 mg PO BID PRN pain #20 tabs 01/05/21 omeprazole 20 mg capsule,delayed 20 mg PO DAILY #14 caps 01/31/21 release uydcedwdxn-yiukfhzojkoar-khpksklg 1 cap PO Q6H PRN headache #20 caps 10/06/21 50 mg-300 mg-40 mg capsule (Fioricet) gabapentin 100 mg capsule 100 mg PO TID #30 caps 05/03/23 prednisone 20 mg tablet 40 mg PO DAILY 5 days #10 tabs 05/03/23 Allergies Allergy/AdvReac Type Severity Reaction Status Date / Time No Known Allergies Allergy Verified 10/06/21 20:03 Review of Systems Review of Systems: Constitutional : No Weight loss, No Fever, No Chills, No Fatigue, No Malaise ENT/Mouth : No sore throat, No Rhinorrhea,+facial pain Eyes: No Eye Pain, No Swelling, No Redness Cardiovascular : No Chest Pain, No SOB, No Dyspnea on Exertion, No Orthopnea, No Edema, No Palpitations Respiratory : No Cough, No Sputum, No Wheezing Gastrointestinal : No Nausea, No Vomiting, No Diarrhea, No Constipation, No abdominal Pain, No Hematochezia, No Melena Genitourinary : No Dysuria, No Urinary Frequency, No Hematuria, Musculoskeletal : No joint pain, No Myalgias, No Joint Swelling Skin : No Skin Lesions, No rash Neuro : No Weakness, No Numbness, No Dizziness, + Headache All other systems reviewed and are negative [facility] Past Medical History Attestation statement: The following information was validated with the patient. Source: old records reviewed and nursing notes reviewed Medical History Gastritis Headache Ovarian cyst UTI (urinary tract infection) Social History Social History Alcohol intake: never Smoked in Last 30 Days: No Use of substances other than those prescribed or required for medical reasons: No Advance Directives: No Patient : No Physical Exam Vital Signs: Vital Signs: Last Vital Signs Temp 98.0 F 05/03/23 10:50 Pulse 98 05/03/23 10:50 Resp 16 05/03/23 10:50 BP 111/48 L 05/03/23 10:50 Pulse Ox 99 05/03/23 10:50 O2 Del Method Room Air 05/03/23 10:50 BMI result Body Mass Index 24.6 Vital signs stable Appearance: Alert.? Oriented X3.? No acute distress.? Head: Normocephalic, atraumatic, no step-offs or deformities. Scalp tender to palpation diffusely, worse on left. Discomfort with palpation overlying pattern of trigeminal nerve on left . Eyes: Pupils equal, round and reactive to light.? ENT: Pharynx normal.? Neck: Normal inspection.? Neck supple.? CVS: Normal heart rate and rhythm.? Pulses normal.? Respiratory: No respiratory distress.? Breath sounds normal.? Abdomen: Soft and nontender.? Skin: Skin warm and dry.? Normal skin color.? Normal skin turgor.? Extremities: No lower extremity edema.? No calf ttp. 5/5 strength to bilateral upper and lower extremities Back: No midline tenderness, no C-spine tenderness, full range of motion, no CVA tenderness bilaterally Neuro: Oriented X 3.? No motor deficit.? No sensory deficit. CN 2-12 intact. Normal bymucb-fr-tapx, dsrz-jn-pfkk. Ambulating with steady gait. Course Reevaluation(s) Reevaluation #1: CBC appears to be within normal limits. Chemistry unremarkable. CRP ESR unremarkable. Unlikely temporal arteritis , more consistent with headache versus trigeminal neuralgia. Pain was 9/10 now 3 or 4/10. Patient states feeling much better, neuro remains nonfocal. Educated patient on diagnosis and treatment plan, answered all question, patient verbalizes understanding. At this time patient will be discharged home, advised to return with new or worsening symptoms. Educated on worrisome signs and symptoms and when to return. At this time I feel comfortable discharge home. Time: 13:03 Medications Administered Discontinued Medications Generic Name Dose Route Start Last Admin Trade Name Ros PRN Reason Stop Dose Admin Acetaminophen 650 mg 05/03/23 11:34 05/03/23 12:01 Acetaminophen 325 Mg Tablet PO 05/03/23 11:35 650 mg ONCE ONE Administration Diphenhydramine HCl 25 mg 05/03/23 11:33 05/03/23 12:02 Diphenhydramine Hcl 50 Mg/Ml Vial IVPUSH 05/03/23 11:34 25 mg ONCE ONE Administration Gabapentin 100 mg 05/03/23 11:35 05/03/23 12:01 Gabapentin 100 Mg Capsule PO 05/03/23 11:36 100 mg ONCE ONE Administration Metoclopramide HCl 10 mg 05/03/23 11:33 05/03/23 12:05 Metoclopramide Hcl 10 Mg/2 Ml Vial IVPUSH 05/03/23 11:34 10 mg ONCE ONE Administration Medical Decision Making Medical Decision Making [facility] Narrative: 1130 32-year-old female history of headache trigeminal neuralgia presents with left-sided facial pain, headache, scalp tenderness x2 weeks despite treatment Physical exam significant for diffuse scalp tenderness to palpation, left greater than right with facial discomfort to palpation over the distribution of the trigeminal nerve, PEERL, normal EOM. Cerebellum intact. Clinical suspicion for trigeminal neuralgia verses giant cell arteritis versus migraine, will obtain inflammatory markers to rule this out. Low suspicion for intracranial hemorrhage, CVA, and cerebellar stroke as exam is nonfocal. Unlikely meningitis or encephalitis given patient's clinical presentation, will check white count for infectious cause. No visual disturbances unlikely acute closed angle glaucoma wet macular degeneration Plan: Labs, inflammatory markers, pain control Differential Diagnosis Differential Diagnoses: The differential diagnosis associated with the presentation includes Clinical suspicion for trigeminal neuralgia verses giant cell arteritis versus migraine, will obtain inflammatory markers to rule this out. Low suspicion for intracranial hemorrhage, CVA, and cerebellar stroke as exam is nonfocal. Unlikely meningitis or encephalitis given patient's clinical presentation, will check white count for infectious cause.No visual disturbances unlikely acute closed angle glaucoma wet macular degeneration Admission/Observation Consideration of admission/observation: Escalation of care including admission/observation considered Unlikely Lab Data MDM Lab Attestation statement: I reviewed the patient's lab results. 05/03/23 11:47 05/03/23 11:47 Labs: Lab Results 05/03/23 05/03/23 05/03/23 Range/Units 11:47 11:47 11:47 WBC 7.2 (4.8-10.8) X10*3/uL RBC 4.07 L (4.20-5.50) X10*6/uL Hgb 12.5 (12.0-16.0) g/dl Hct 38.4 (37.0-47.0) % MCV 94.3 (80.0-98.0) fL MCH 30.7 (27.0-33.0) pg MCHC 32.6 (31.0-35.0) g/dl RDW 12.8 (11.0-16.0) % Plt Count 280 (160-400) X10*3/uL MPV 9.2 L (9.4-12.3) fL Immature Gran % (Auto) 0.3 (0.0-0.4) % Neut % (Auto) 72.4 (45-73) % Lymph % (Auto) 20.0 (20-40) % Thayer % (Auto) 6.3 (2-11) % Eos % (Auto) 0.6 (0-4) % Baso % (Auto) 0.4 (0-2) % Lymph # (Auto) 1.4 (1.2-4.9) X10*3/uL Thayer # (Auto) 0.5 (0.1-1.2) X10*3/uL Eos # (Auto) 0.0 (0.0-0.4) X10*3/uL Baso # (Auto) 0.0 (0.0-0.2) X10*3/uL Abs Immat Gran (auto) 0.02 (0.00-0.03) X10*3/uL Absolute Neuts (auto) 5.2 (2.0-8.3) x10*3/uL Absolute Nucleated RBC 0.000 (0.0-0.012) X10*3/uL Nucleated RBC % (auto) 0.0 (0.0-0.2) /100WBC ESR 11 (0-20) MM/HR Sodium 140 (135-145) mmol/L Potassium 4.3 (3.3-5.1) mmol/L Chloride 107 (96-108) mmol/L Carbon Dioxide 22 (22-29) mmol/L Anion Gap 15 (12-20) BUN 15 (9-16) mg/dL Creatinine 0.67 (0.5-1.4) mg/dL Estim Creat Clear Calc 90.5 Estimated GFR > 60 Random Glucose 87 (60-115) mg/dL Calcium 9.1 (8.4-10.2) mg/dL Magnesium 1.9 (1.6-2.6) mg/dL Total Bilirubin 0.4 (0.0-1.0) mg/dL AST 14 (5-31) U/L ALT 11 (0-31) U/L Alkaline Phosphatase 70 (39-117) U/L C-Reactive Protein 0.16 (< or = 0.50) mg/dL Total Protein 5.9 L (6.5-8.0) g/dL Albumin 3.5 (3.5-5.0) g/dL Tests considered The following testing was considered but not selected: Unremarkable neuro exam, cerebellar intact. No indication for head imaging CT or MRI. I do not suspect stroke. Core Measures AMI core measures followed: Yes Measure exclusions: not indicated Discharge Plan Discharge Clinical Impression: Headache, Trigeminal neuralgia Patient Disposition: Home, Self-Care Instructions: Trigeminal Neuralgia (ED), Acute Headache (ED) Additional Instructions: Take your medications as prescribed. If you were prescribed antibiotics today, it is important that you take your medication to their entirety, do not skip any doses, do not finish them early. Follow-up with your primary care provider this week. Follow-up with neurology. Return to the emergency department with new or worsening symptoms. Such as fevers, chills, chest pain, shortness of breath, nausea, vomiting, dizziness, headache, vision changes, lethargy In case of emergency call 911 Prescriptions: New gabapentin 100 mg capsule 100 mg PO TID Qty: 30 0RF prednisone 20 mg tablet 40 mg PO DAILY 5 Days Qty: 10 0RF No Action naproxen [Naprosyn] 500 mg tablet 500 mg PO BID PRN (Reason: pain) Qty: 20 0RF brpgexxvvi-caiftjugoozsc-ovmi 50-325-40 mg tablet 2 tab PO Q6H PRN (Reason: pain) Qty: 14 0RF Rx Instructions: do not exceed 6 tabs per 24 hrs cyclobenzaprine 10 mg tablet 10 mg PO TID PRN (Reason: muscle spasm) Qty: 14 0RF omeprazole 20 mg capsule,delayed release(DR/EC) 20 mg PO DAILY Qty: 14 0RF wikaiztygi-mgdashkchblzi-ojsp [Fioricet] 50-300-40 mg capsule 1 cap PO Q6H PRN (Reason: headache) Qty: 20 0RF Referrals: [facility] [place] Neuro/Sleep [Provider Group] - 2 days Roberta Mejias MD [Primary Care Provider] - 2 days Stand Alone Forms: Work/School Release
[2023-05-03 11:50] LABS: MANUAL DIFF FLAG NO
[2023-05-03 11:52] LABS: Basophils Percent Auto 0.4 % (0-2); Eosinophils Percent Auto 0.6 % (0-4); Hematocrit 38.4 % (37.0-47.0); Hemoglobin 12.5 g/dl (12.0-16.0); Imm Gran Abs Auto 0.02 X10*3/uL (0.00-0.03); Imm Gran Pct Auto 0.3 % (0.0-0.4); Lymphocytes Absolute Auto 1.4 X10*3/uL (1.2-4.9); Mean Corpuscular HGB Conc 32.6 g/dl (31.0-35.0); Mean Corpuscular Hemoglobin 30.7 pg (27.0-33.0); Mean Corpuscular Volume 94.3 fL (80.0-98.0); Mean Platelet Volume 9.2 fL (9.4-12.3); Monocytes Absolute Auto 0.5 X10*3/uL (0.1-1.2); Monocytes Percent Auto 6.3 % (2-11); Neutrophils Absolute Auto 5.2 x10*3/uL (2.0-8.3); Neutrophils Percent Auto 72.4 % (45-73); Platelet Count 280 X10*3/uL (160-400); Red Blood Count 4.07 X10*6/uL (4.20-5.50); Red Cell Distribution Width 12.8 % (11.0-16.0); White Blood Count 7.2 X10*3/uL (4.8-10.8)
[2023-05-03] MEDS: Acetaminophen 325 MG TABLET 650 MG PO (12:01)
[2023-05-03] MEDS: Gabapentin 100 MG CAPSULE PO (12:01)
[2023-05-03] MEDS: diphenhydrAMINE HCL 50 MG/ML VIAL 25 MG IVPUSH (12:02)
[2023-05-03] MEDS: Metoclopramide HCl 10 MG/2 ML VIAL IVPUSH (12:05)
[2023-05-03 12:06] LABS: Alanine Aminotransferase 11 U/L (0-31); Albumin Level 3.5 g/dL (3.5-5.0); Alkaline Phosphatase 70 U/L (39-117); Anion Gap 15 (12-20); Aspartate Amino Transferase 14 U/L (5-31); Bilirubin Total 0.4 mg/dL (0.0-1.0); Blood Urea Nitrogen 15 mg/dL (9-16); C Reactive Protein 0.16 mg/dL (< or = 0.50); Calcium 9.1 mg/dL (8.4-10.2); Carbon Dioxide 22 mmol/L (22-29); Chloride 107 mmol/L (96-108); Creatinine Clr Calc Pharmacy 90.5; Estimated Glomerular Filt Rate > 60; Glucose Random 87 mg/dL (60-115); Magnesium 1.9 mg/dL (1.6-2.6); Potassium 4.3 mmol/L (3.3-5.1); Sodium 140 mmol/L (135-145); Total Protein 5.9 g/dL (6.5-8.0)
--- NOTE | 2023-05-03 12:07 | PC.NURSE ---
20gIV placed in the right AC w/o complications - medications administered per provider order.
[2023-05-03 12:42] LABS: Erythrocyte Sedimentation Rate 11 MM/HR (0-20)
== END 2023-05-03 13:20 | disposition home or self-care (01) ==
PROVIDERS: Physician Assistant; Emergency Provider Student in an Organized Health Care Education/Training Program; PCP Internal Medicine
DX: R51.9 Headache, unspecified (principal); G50.0 Trigeminal neuralgia; Z79.899 Other long term (current) drug therapy
CPT/HCPCS: 36415; 80053; 83735; 85025; 85652; 86140; 96374; 96375; 99284; 99285; J1200; J2765

== ENCOUNTER 2023-06-24 11:24 | Outpatient (REF) | payer MEDICAID, SELFPAY ==
--- NOTE | ~2023-06-24 | MR_ITS ---
EXAMINATION: MR BRAIN WITHOUT AND WITH CONTRAST CLINICAL INFORMATION: Pressure and left side of head. Right-sided headache. COMPARISON: CT head from 05/11/2021. TECHNIQUE: Multiplanar, multisequence MRI of the brain was obtained using a skull base protocol without and following the administration of 5.5 mL of Gadavist intravenous contrast. FINDINGS: No focal restricted diffusion is demonstrated to suggest acute or subacute cerebral ischemia. Few nonspecific scattered periventricular and deep white matter T2 FLAIR hyperintensities. The ventricles are normal in morphology and size. No abnormal mass effect. No midline shift. Normal appearance of the pituitary gland. Normal positioning of the cerebellar tonsils. No mass of the cerebellopontine angles. Normal appearance of the cranial nerve V, VII, and VIII nerve roots. No edema or vascular loops near the nerve root entry sites. Normal appearance of the internal auditory canals without enhancing mass lesions. No abnormal enhancement along the course of the facial nerves bilaterally. Normal appearance of the labyrinthine structures without loss of T2 signal or abnormal enhancement. Normal arterial and venous vascular flow voids are present. No abnormal intracranial contrast enhancement. Normal, homogeneous marrow signal. Mild mucosal thickening of the paranasal sinuses. No signal abnormalities within the mastoids. MR/MR head/brain wo/w con IMPRESSION: 1. No acute intracranial abnormalities. No abnormal intracranial enhancement. 2. Mild nonspecific white matter changes. 3. No additional MRI abnormalities to explain the patient's symptoms.
[2023-06-24] MEDS: gadobutroL 7.5 ML VIAL IVPUSH (13:15)
== END 2023-06-24 11:25 | disposition home or self-care (01) ==
LOC: HO.MRI 11:24
PROVIDERS: PCP Internal Medicine; Visit Provider Internal Medicine
DX: G50.0 Trigeminal neuralgia (principal)
CPT/HCPCS: 70553; A9585

== ENCOUNTER 2024-10-23 12:37 | Emergency (ER) | payer OTHER, SELFPAY ==
[2024-10-23 12:52] VITALS: BP 119/76; PULSE 70; RESP 19; TEMP 36.6; O2SAT 98; BMI 25.2
[2024-10-23 13:12] LABS: MANUAL DIFF FLAG NO
[2024-10-23 13:14] LABS: Basophils Percent Auto 0.4 % (0-2); Eosinophils Absolute Auto 0.1 X10*3/uL (0.0-0.4); Eosinophils Percent Auto 0.7 % (0-4); Hematocrit 35.7 % (37.0-47.0); Hemoglobin 12.2 g/dl (12.0-16.0); Imm Gran Abs Auto 0.03 X10*3/uL (0.00-0.03); Imm Gran Pct Auto 0.4 % (0.0-0.4); Lymphocytes Absolute Auto 1.7 X10*3/uL (1.2-4.9); Lymphocytes Percent Auto 20.5 % (20-40); Mean Corpuscular HGB Conc 34.2 g/dl (31.0-35.0); Mean Corpuscular Hemoglobin 30.7 pg (27.0-33.0); Mean Corpuscular Volume 89.9 fL (80.0-98.0); Mean Platelet Volume 9.4 fL (9.4-12.3); Monocytes Absolute Auto 0.6 X10*3/uL (0.1-1.2); Monocytes Percent Auto 7.1 % (2-11); Neutrophils Absolute Auto 5.9 x10*3/uL (2.0-8.3); Neutrophils Percent Auto 70.9 % (45-73); Platelet Count 338 X10*3/uL (160-400); Red Blood Count 3.97 X10*6/uL (4.20-5.50); Red Cell Distribution Width 12.4 % (11.0-16.0); White Blood Count 8.4 X10*3/uL (4.8-10.8)
[2024-10-23 13:21] LABS: IDNOW Serial# 58CA691E; Strep A Nucleic Acid Negative (Negative)
[2024-10-23 13:27] LABS: Alanine Aminotransferase 10 U/L (0-31); Alkaline Phosphatase 85 U/L (39-117); Anion Gap 8 (12-20); Aspartate Amino Transferase 22 U/L (5-31); Bilirubin Total 0.3 mg/dL (0.0-1.0); Blood Urea Nitrogen 15 mg/dL (9-16); Calcium 8.6 mg/dL (8.4-10.2); Carbon Dioxide 27 mmol/L (22-29); Chloride 108 mmol/L (96-108); Creatinine Clr Calc Pharmacy 89.4; Estimated Glomerular Filt Rate > 60; Glucose Random 82 mg/dL (60-115); Potassium 3.6 mmol/L (3.3-5.1); Sodium 139 mmol/L (135-145)
[2024-10-23 14:05] LABS: Influenza A PCR NEGATIVE (Negative); Influenza B PCR NEGATIVE (Negative); Resp Syncy Virus RNA Qual PCR NEGATIVE (Negative); SARS COV2 PCR INHOUSE NEGATIVE (Negative)
--- NOTE | 2024-10-23 14:31 | ED_ITS ---
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 She reports that after she got out of the shower this morning she was experiencing redness that was noted to the entire face with mild itchiness. She states that she ultimately decided to go to work but she continued to have the redness and itchiness to her face. Reports about 90 minutes prior to arrival she had some mild shortness of breath. She denies shortness of breath at this time. Denies throat tightness tongue swelling or throat closing sensation. She denies any new skin products lotions or creams for environmental exposures that she may be having allergic reaction to. She denies consuming any new food products. Related Data Previous Rx's ?Medication ?Instructions ?Recorded qlybipgrjl-wyiorwretwilb-qlxpojuk 2 tab PO Q6H PRN pain #14 tabs 07/12/20 50 mg-325 mg-40 mg tablet cyclobenzaprine 10 mg tablet 10 mg PO TID PRN muscle spasm #14 07/12/20 tabs naproxen 500 mg tablet (Naprosyn) 500 mg PO BID PRN pain #20 tabs 01/05/21 omeprazole 20 mg capsule,delayed 20 mg PO DAILY #14 caps 01/31/21 release xtdtycyrjx-pptactcgammsq-godczirc 1 cap PO Q6H PRN headache #20 caps 10/06/21 50 mg-300 mg-40 mg capsule (Fioricet) gabapentin 100 mg capsule 100 mg PO TID #30 caps 05/03/23 prednisone 20 mg tablet 40 mg (2 x 20 mg) PO DAILY 5 days 05/03/23 #10 tabs Allergies Allergy/AdvReac Type Severity Reaction Status Date / Time No Known Allergies Allergy Verified 10/23/24 12:54 Review of Systems 2 Review of Systems: Yes all other systems are reviewed and are negative PMFSH Past Medical History Attestation statement: The following information was validated with the patient. Source: old records reviewed Medical History Ovarian cyst Gastritis UTI (urinary tract infection) Headache Social History Social History Alcohol intake: never Advance Directives: No Advance Directives Information Provided: No Do you have a plan to hurt others: No Plan Physical Exam ED Vital Signs: Vital Signs - 24 hr 10/23/24 12:52 Temperature 98 F Pulse Rate 70 Respiratory Rate 19 Blood Pressure 119/76 Pulse Oximetry 98 BMI result Body Mass Index 25.2 Appearance: Alert.?Oriented to person, place and time. No acute distress.?Normal affect. Eyes: Pupils equal, round and reactive to light.? No periorbital swelling. ENT: Pharynx normal.? Uvula midline. No angioedema/ swelling of the tongue/face. ? Neck: Normal inspection.? Neck supple.??No adenopathy CVS: Heart sounds normal. Normal heart rate and rhythm.? Pulses normal.?? Respiratory: No respiratory distress.? Lung sounds clear to auscultation bilaterally?? Abdomen: Soft and non-tender. Normoactive bowel sounds. Skin: Skin warm and dry.? Normal skin color.? Erythematous patch noted to the bilateral cheeks over the nasal bridge, forehead, and chin, appears to have a fine maculopapular component and some areas of it. No urticaria. Extremities: No lower extremity edema.? No calf ttp? Neuro: Moves all extremities spontaneously. Sensation intact bilaterally. No focal neuro deficits. Ambulates with normal steady gait. Medications Administered Discontinued Medications Generic Name Dose Route Start Last Admin Trade Name Freq PRN Reason Stop Dose Admin Diphenhydramine HCl 50 mg 10/23/24 14:43 10/23/24 15:23 Diphenhydramine Hcl 25 Mg Capsule PO 10/23/24 14:44 50 mg ONCE ONE Administration Medical Decision Making Medical Decision Making [facility] Narrative: Patient is a 33 year old female who presents emergency department for evaluation of a rash and itchiness to the face resolved shortness of breath that had onset well after the onset of the facial rash. Denies any known allergens or potential exposures. On examination does not appear consistent with urticaria. No evidence of anaphylaxis. She was ill approximately 1.5 weeks ago with an upper respiratory illness but symptoms have resolved, no further infectious symptoms. Presentation at this time concerning for a contact dermatitis, potentially a mild allergic reaction. Patient well appearing in no acute distress, breathing easily without throat symptoms. Speaking full sentences, and handling secretions without difficulty. There is no obvious threat to airway. Lungs are CTA in all scott.? No signs of angioedema, stridor, airway compromise, anaphylaxis or anaphylactic shock. Not c/w SSSS/ TEN/Erythema multiforme/ Wheatley Johnsons. Trialing antihistamine at this time. Given history and physical exam, Will watch and observe. If patient continues to be symptom free, will discharge with return precautions. Patient understands and agrees with plan Differential Diagnosis Differential Diagnoses: The differential diagnosis associated with the presentation includes (See narrative above) Admission/Observation Consideration of admission/observation: Escalation of care including admission/observation considered Lab Data MDM Lab Attestation statement: I reviewed the patient's lab results. CBC is without leukocytosis notable anemia or thrombocytopenia. No electrolyte derangement. No MAUREEN. Viral serologies are negative. Group a strep testing negative. 10/23/24 13:05 10/23/24 13:05 Labs: Lab Results 10/23/24 10/23/24 Range/Units 13:05 13:06 WBC 8.4 (4.8-10.8) X10*3/uL RBC 3.97 L (4.20-5.50) X10*6/uL Hgb 12.2 (12.0-16.0) g/dl Hct 35.7 L (37.0-47.0) % MCV 89.9 (80.0-98.0) fL MCH 30.7 (27.0-33.0) pg MCHC 34.2 (31.0-35.0) g/dl RDW 12.4 (11.0-16.0) % Plt Count 338 (160-400) X10*3/uL MPV 9.4 (9.4-12.3) fL Immature Gran % (Auto) 0.4 (0.0-0.4) % Neut % (Auto) 70.9 (45-73) % Lymph % (Auto) 20.5 (20-40) % Long % (Auto) 7.1 (2-11) % Eos % (Auto) 0.7 (0-4) % Baso % (Auto) 0.4 (0-2) % Lymph # (Auto) 1.7 (1.2-4.9) X10*3/uL Long # (Auto) 0.6 (0.1-1.2) X10*3/uL Eos # (Auto) 0.1 (0.0-0.4) X10*3/uL Baso # (Auto) 0.0 (0.0-0.2) X10*3/uL Abs Immat Gran (auto) 0.03 (0.00-0.03) X10*3/uL Absolute Neuts (auto) 5.9 (2.0-8.3) x10*3/uL Absolute Nucleated RBC 0.000 (0.0-0.012) X10*3/uL Nucleated RBC % (auto) 0.0 (0.0-0.2) /100WBC Sodium 139 (135-145) mmol/L Potassium 3.6 (3.3-5.1) mmol/L Chloride 108 (96-108) mmol/L Carbon Dioxide 27 (22-29) mmol/L Anion Gap 8 L (12-20) BUN 15 (9-16) mg/dL Creatinine 0.68 (0.5-1.4) mg/dL Estim Creat Clear Calc 89.4 Estimated GFR > 60 Random Glucose 82 (60-115) mg/dL Calcium 8.6 (8.4-10.2) mg/dL Total Bilirubin 0.3 (0.0-1.0) mg/dL AST 22 (5-31) U/L ALT 10 (0-31) U/L Alkaline Phosphatase 85 (39-117) U/L Total Protein 7.0 (6.5-8.0) g/dL Albumin 4.0 (3.5-5.0) g/dL Influenza Type A (PCR) NEGATIVE (Negative) Influenza Type B (PCR) NEGATIVE (Negative) RSV RNA Qual (PCR) NEGATIVE (Negative) SARS-CoV-2 RNA (RT-PCR) NEGATIVE (Negative) S. pyogenes GrpA JONATAN Negative (Negative) External Record Review External record reviewed: Outpatient record Prescription Management I considered prescription management with: Other (See narrative above) Discharge Plan Discharge Clinical Impression: Contact dermatitis Patient Disposition: Home, Self-Care Instructions: Contact Dermatitis (ED) Additional Instructions: Take rwwd-fza-ymkdndb allergy medications; Claritin or Zyrtec daily over the next few days. Apply facial moisturizer that is non scented/hypoallergenic. Follow-up with primary care doctor. Return with any new or worsening symptoms or concerns Prescriptions: No Action naproxen [Naprosyn] 500 mg tablet 500 mg PO BID PRN (Reason: pain) Qty: 20 0RF ppdhkugiys-ouokhccpucdgp-vpjs 50-325-40 mg tablet 2 tab PO Q6H PRN (Reason: pain) Qty: 14 0RF Rx Instructions: do not exceed 6 tabs per 24 hrs cyclobenzaprine 10 mg tablet 10 mg PO TID PRN (Reason: muscle spasm) Qty: 14 0RF omeprazole 20 mg capsule,delayed release(DR/EC) 20 mg PO DAILY Qty: 14 0RF ultsbfxomi-jhtnbxjdexols-umwm [Fioricet] 50-300-40 mg capsule 1 cap PO Q6H PRN (Reason: headache) Qty: 20 0RF gabapentin 100 mg capsule 100 mg PO TID Qty: 30 0RF prednisone 20 mg tablet 40 mg PO DAILY 5 Days Qty: 10 0RF Referrals: Roberta Mejias MD [Primary Care Provider] - Print Language: Icelandic
[2024-10-23] MEDS: diphenhydrAMINE HCL 25 MG CAPSULE 50 MG PO (15:23)
[2024-10-23 16:03] VITALS: BP 119/76; PULSE 70; RESP 19; TEMP 36.6; O2SAT 98
== END 2024-10-23 16:04 | disposition home or self-care (01) ==
PROVIDERS: Physician Assistant Medical; Emergency Provider Emergency Medicine; PCP Internal Medicine
DX: L25.9 Unspecified contact dermatitis, unspecified cause (principal); L29.9 Pruritus, unspecified; Z03.818 Encounter for observation for suspected exposure to other biological agents ruled out
CPT/HCPCS: 0241U; 80053; 85025; 87651; 99282; 99283

== ENCOUNTER 2025-06-09 08:38 | Emergency (ER) | payer SELFPAY ==
--- NOTE | ~2025-06-09 | CT_ITS ---
EXAMINATION: CT HEAD WITHOUT CONTRAST CLINICAL INFORMATION: Headache COMPARISON: May 11, 2021 TECHNIQUE: Contiguous axial imaging was performed from the skull base to vertex without intravenous administration of contrast. This CT examination was performed using dose optimization techniques as appropriate, variously including the following: *Automated exposure control *Adjustment of mA and/or kV according to patient size (this includes techniques or standardized protocols for targeted exams where dose is matched to indication/reason for exam; i.e. extremities or head) *Use of iterative reconstruction technique DLP: 662 mGY*cm FINDINGS: There is no acute ischemic change. There is no intracranial hemorrhage. There is no mass-effect or midline shift. There is stable large desiccation along the anterior falx. Basal cisterns and ventricles are within normal limits for age/cerebral volume. Orbits are symmetrical and unremarkable. Paranasal sinuses and mastoid air cells are pneumatized. There are no bony abnormalities. CT/CT head/brain wo IV con IMPRESSION: No acute intracranial abnormality. Electronically signed by: Bennett Max MD 06/09/2025 10:54 AM EDT
[2025-06-09 08:48] VITALS: BP 114/67; PULSE 65; RESP 16; TEMP 36.6; O2SAT 100; BMI 24.2
--- NOTE | 2025-06-09 09:27 | ED_ITS ---
HPI - General Adult General Chief complaint: Headache Stated complaint: headache Time Seen by Provider: 06/09/25 09:27 Source: patient Mode of arrival: ambulatory Limitations: no limitations History of Present Illness ED Provider: Cristine Sesay PA-C HPI narrative: Patient is a 34 year old assigned female at with a history of trigeminal neuralgia, headache, gastritis presenting to the emergency department today with right-sided headache. She reports a history of a left-sided headache, trigeminal neuralgia and left-sided facial paralysis, but the right sided pain is new for her prompting her to present to the ED for evaluation. The headache started 1 week ago and has been constant. She has been taking Tylenol at home with very minimal relief. She describes the pain as burning and located behind her right eye and throughout the right side of her head. Patient denies any photophobia, dizziness, lightheadedness, abdominal pain, nausea, vomiting, fever, chills, blurry vision, double vision, loss of vision, chest pain, difficulty breathing, shortness of breath, back pain, night sweats, or any other complaints at this time. Onset (ago): week(s) (1 week) Quality: burning Pain Consistency: constant Associated symptoms: denies other symptoms Treatments prior to arrival: NSAID Related Data Previous Rx's ?Medication ?Instructions ?Recorded dmsbsczzfx-iljghlmiwcyzg-judbggff 2 tab PO Q6H PRN azul n #14 tabs 07/12/20 50 mg-325 mg-40 mg tablet cyclobenzaprine 10 mg tablet 10 mg PO TID PRN muscle s pasm #14 07/12/20 tabs naproxen 500 mg tablet (Naprosyn) 500 mg PO BID PRN pa in #20 tabs 01/05/21 omeprazole 20 mg capsule,delayed 20 mg PO DAILY #14 ca ps 01/31/21 release uwqeiijrsq-mlzzveudtfolo-xvasomni 1 cap PO Q6H PRN hea dache #20 caps 10/06/21 50 mg-300 mg-40 mg capsule (Fioricet) gabapentin 100 mg capsule 100 mg PO TID #30 caps 05/03 prednisone 20 mg tablet 40 mg (2 x 20 mg) PO DAILY 5 days 05/03/23 #10 tabs Allergies Allergy/AdvReac Type Severity Reaction Status Date / Time No Known Allergies Allergy Verified 06/09/25 08:51 Review of Systems Constitutional: Constitutional: Reports as per HPI Eyes: Eyes: Reports as per HPI ENT: Reports as per HPI Cardiovascular: Cardiovascular: Reports as per HPI Respiratory: Respiratory: Reports as per HPI Gastrointestinal: Gastrointestinal: Reports as per HPI Genitourinary: Genitourinary: Reports as per HPI Musculoskeletal: Musculoskeletal: Reports as per HPI Integumentary/Breasts: Skin/Breast: Reports as per HPI Neurologic: Reports as per HPI Psychiatric: Psychiatric: Reports as per HPI Endocrine: Endocrine: Reports as per HPI Hematologic/Lymphatic: Hematologic/Lymphatic: Reports as per HPI Allergic/Immunologic: Allergic/Immunologic: Reports as per HPI [facility] Past Medical History Attestation statement: The following information was validated with the patient. Source: old records reviewed and nursing notes reviewed Medical History Ovarian cyst Gastritis UTI (urinary tract infection) Headache Social History Social History Alcohol intake: never Physical Exam ED Vital Signs: Vital Signs - 24 hr 06/09/25 08:48 06/09/25 11:35 Temperature 97.9 F 98 F Pulse Rate 65 64 Respiratory Rate 16 16 Blood Pressure 114/67 90/48 L Pulse Oximetry 100 95 Oxygen Delivery Method Room Air Room Air BMI result Body Mass Index 24.2 Const General: cooperative, no acute distress, alert and awake Nutritional Appearance: well nourished Orientation/consciousness: patient oriented x3 HENMT Head: Yes normal to inspection and Yes atraumatic Ears: hearing grossly normal bilaterally and external ears normal General nose exam: Normal external nose present, no nasal discharge noted and no epistaxis Face and sinus: Yes normal facial exam, No abrasion and No laceration Mouth: Normal oral and palatal mucosa present, no drooling and no muffled voice Eyes General: appearance normal, both eyes and all related structures Periorbital: periorbital findings normal Eyelids: Yes eyelids normal Conjunctivae: conjunctivae normal Pupils: Equal, round and reactive pupils present EOM: EOMs intact bilaterally Neck Neck: Yes normal visual inspection and Yes full ROM Resp Effort & Inspection: normal respiratory effort and able to speak in complete sentences Neuro General: patient oriented x3, moves all extremities and CN's II-XI intact bilaterally Cranial nerves: Yes Equal, round and reactive pupils present Cognition (Neuro): normal cognition Extrem General: Yes normal to inspection, Yes full ROM and Yes capillary refill normal Psych Appearance: grossly normal Mental Status: mental status grossly normal Affect: normal affect Attitude: cooperative Thought process: Normal thought process present Thought content: Normal thought content present Insight: Good insight present (Psych) Medications Administered Discontinued Medications Generic Name Dose Route Start Last Admin Trade Name Ros PRN Reason Stop Dose Admin Diphenhydramine HCl 25 mg 06/09/25 10:06/09/25 10:26 Diphenhydramine Hcl 50 Mg/Ml Vial IVPUSH 06/09/25 10:10 25 mg ONCE ONE Administration Ketorolac Tromethamine 15 mg 06/09/25 10:06/09/25 10:26 Ketorolac Tromethamine 15 Mg/Ml Vial IVPUSH 06/09/25 10:10 15 mg ONCE ONE Administration Ondansetron HCl 4 mg 06/09/25 10:06/09/25 10:25 Ondansetron Hcl 4 Mg/2 Ml Vial IVPUSH 06/09/25 10:10 4 mg ONCE ONE Administration Medical Decision Making Medical Decision Making [facility] Narrative: Patient is a 34 year old assigned female at with a history of trigeminal neuralgia, headache, gastritis presenting to the emergency department today with right-sided headache. Patient's physical exam was unremarkable. Patient's CT head showed no acute process. Patient's presentation is most consistent with a migraine headache. I explained my physical exam findings as well as all test results to the patient. I answered all questions asked by the patient. Patient received a migraine cocktail including toradol and benadryl which, upon re- evaluation, she stated it helped her symptoms significantly. I stressed the importance of the patient taking her medication as directed (either prescribed or as the over the counter packaging recommends). I stressed the importance of the patient following up with her primary care provider. I stressed the importance of the patient returning to the emergency department immediately if her symptoms were to worsen or if she were to develop any dizziness, shortness of breath, difficulty breathing, chest pain, blurry vision, loss of vision, nausea, vomiting, abdominal pain, fever, chills, back pain, or any other complaints. Patient verbalized agreement and understanding with this treatment plan and discharge. Differential Diagnosis Differential Diagnoses: The differential diagnosis associated with the presentation includes Headache Migraine headache Trigeminal neuralgia Admission/Observation Consideration of admission/observation: Escalation of care including admission/observation considered Patient would have been admitted to the hospital had her work up had any findings where hospital admission was appropriate and her clinical presentation warranted hospital admission. Independent Interpretation I performed an independent interpretation of an: CT Scan Interpretation: My interpretation is in agreement with the radiologist's impression of this imaging study. Report Number: [id number]: Total DLP = 662.00 mGy-cm Reason for Exam: headache, pain EXAMINATION: CT HEAD WITHOUT CONTRAST CLINICAL INFORMATION: Headache COMPARISON: May 11, 2021 TECHNIQUE: Contiguous axial imaging was performed from the skull base to vertex without intravenous administration of contrast. This CT examination was performed using dose optimization techniques as appropriate, variously including the following: *Automated exposure control *Adjustment of mA and/or kV according to patient size (this includes techniques or standardized protocols for targeted exams where dose is matched to indication/reason for exam; i.e. extremities or head) *Use of iterative reconstruction technique DLP: 662 mGY*cm FINDINGS: There is no acute ischemic change. There is no intracranial hemorrhage. There is no mass-effect or midline shift. There is stable large desiccation along the anterior falx. Basal cisterns and ventricles are within normal limits for age/cerebral volume. Orbits are symmetrical and unremarkable. Paranasal sinuses and mastoid air cells are pneumatized. There are no bony abnormalities. CT/CT head/brain wo IV con IMPRESSION: No acute intracranial abnormality. Electronically signed by: Bennett Max MD 06/09/2025 10:54 AM EDT Dictated By: Bennett Max MD Signed By: Electronically signed by Bennett Max MD 06/09/25 1054 Radiology Impression Discussion of test interpretation with radiology: I have reviewed the radiologist's reading. Critical Care Time Critical Care Time Critical Care Time: Yes Total Critical Care Time: 34 Attestation: I spent 34 minutes of Critical Care Time with this patient. This does not include time spent on separately reported billable procedures. Discharge Plan Discharge Clinical Impression: Migraine Patient Disposition: Home, Self-Care Instructions: Migraine Headache (ED) Additional Instructions: Your CT head was unremarkable. I believe you have a migraine headache. IF you are prescribed home medications and/or you are taking over the counter medications at home - it is very important you continue to do so as prescribed / directed unless told otherwise. Follow up with your primary care provider. Return to the emergency department immediately if your symptoms worsen or if you develop any numbness, tingling, dizziness, shortness of breath, difficulty breathing, chest pain, blurry vision, loss of vision, nausea, vomiting, abdominal pain, fever, chills, back pain, or any other complaints. Please see the information below about our Patient Portal. If you are not yet enrolled in the [facility] Patient Portal, you will receive an enrollment email invitation following your visit to any [facility] setting. You may also self-enroll in the Patient Portal by visiting our website: [email or web address] The following information is required to access the Patient Portal: - Your [facility] Medical Record Number - Your personal home email address (must match what is in your electronic medical record, Registration staff can assist with this) - Name - Date of Capabilities of the Patient Portal: - Message some providers - View upcoming appointments - Access your health summary, medical history, and visit history - View current conditions and allergies - View procedure and lab results - View your medications, including guidelines, side effects, and precautions - Complete pre-appointment questionnaires requested by your provider - Ready summary reports of your office visits and procedures To access the Patient Portal Mobile Cookie, follow these directions: - Search [employer] in the Cookie Store or SIPphone Store - Download the Cookie - Search for [facility] - Enter your login/password Prescriptions: No Action naproxen [Naprosyn] 500 mg tablet 500 mg PO BID PRN (Reason: pain) Qty: 20 0RF thmrsmvhmy-wvtlmopkcrnqg-tywd 50-325-40 mg tablet 2 tab PO Q6H PRN (Reason: pain) Qty: 14 0RF Rx Instructions: do not exceed 6 tabs per 24 hrs cyclobenzaprine 10 mg tablet 10 mg PO TID PRN (Reason: muscle spasm) Qty: 14 0RF omeprazole 20 mg capsule,delayed release(DR/EC) 20 mg PO DAILY Qty: 14 0RF hjhypugbnp-ucpuidaleiksx-rucb [Fioricet] 50-300-40 mg capsule 1 cap PO Q6H PRN (Reason: headache) Qty: 20 0RF gabapentin 100 mg capsule 100 mg PO TID Qty: 30 0RF prednisone 20 mg tablet 40 mg PO DAILY 5 Days Qty: 10 0RF Referrals: Roberta Mejias MD [Primary Care Provider, Internal Medicine] Interventions: ED Discharge Assessment Last Done: 06/09/25 11:35 Discharge Date/Time: 06/09/25 11:36 Print Language: Hungarian
--- OUTSIDE RECORDS SUMMARY | 2025-06-09 10:12 | XMS_ITS | Clinical Summary ---
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 Name Role Phone Marilou Lin MD Primary Care Provider [phone] Surgical History Surgery Date Site/Laterality Comments OTHER SURGICAL HISTORY PROCEDURE: DENIES PREVIOUS SURGERY Medical History Medical History Date Comments Depression DX:Depression Chlamydia DX:Chlamydia History of episiotomy 2006 DX:History of episiotomy; COMMENT: vacuum assisted delivery Shoulder dystocia during lab or and delivery, delivered 2010 DX:Shoulder dystocia during labor and delivery, delivered; COMMENT: 2010 and 2015 History of IUFD 01/2019 DX:History of IU FD; COMMENT: @ 33 wks Family History Medical History Relation Name Comments No Known Problems Brother Diabetes Father Diabetes Mother Relation Name Status Comments Brother Alive Father Alive Mother Alive Social History Tobacco Use Types Packs/Day Years Used Date Smoking Tobacco: Never Smokeless Tobacco: Never Comments Unknown Sex and Gender Information Value Date Recorded Sex Assigned at Not on file Legal Sex Female 10:48 PM EST Gender Identity Not on file Sexual Orientation Not on file Obstetrics History Plan of Treatment Health Maintenance Due Date Last Done Comments DTaP,Tdap,and Td Vaccines (1 - Tdap) 2008 Hepatitis B Vaccines (1 of 3 - 19+ 3-dose series) 2008 Cervical Cancer Screening: P ap Smear 01/21/2022 01/21/2019 Depression Screening 10/06/2024 COVID-19 Vaccine ( - 2023-2 5 season) 2025 Influenza Vaccine (#1) 2025 HIB Vaccines Aged Out No longer eligi ble based on patient's age to complete this topic HPV Vaccines Aged Out No longer eligi ble based on patient's age to complete this topic Hepatitis A Vaccines Aged Out No long er eligible based on patient's age to complete this topic IPV Vaccines Aged Out No longer eligi ble based on patient's age to complete this topic MMR Vaccines Aged Out No longer eligi ble based on patient's age to complete this topic Meningococcal ACWY Vaccine Aged Out N o longer eligible based on patient's age to complete this topic Meningococcal B Vaccine Aged Out No l onger eligible based on patient's age to complete this topic Pneumococcal Vaccine: Pediat rics (0 to 5 Years) and At-Risk Patients (6 to 49 Years) Aged Out No longer eligi ble based on patient's age to complete this topic RSV Immunization Patients Un dao 20 months Aged Out No longer eligible b ased on patient's age to complete this topic Varicella Vaccines Aged Out No longer eligible based on patient's age to complete this topic Procedures Procedure Name Priority Date/Time Associated Diagnosis Comments PAP SMEAR Routine 01/21/2019 from Last 3 Months or Most Recently Relevant to Health Maintenance Results * Pap smear (01/21/2019) 01/21/2019 Narrative HISTORICAL TESTING LAB RESULTING AGENCY - 01/25/2019 2:11 PM EDT [id number] THINPREP PAP, IMAGED: NEGATIVE FOR SQUAMOUS INTRAEPITHELIAL LESION AND MALIGNANCY . ABUNDANT PARTIALLY OBSCURING ACUTE INFLAMMATORY CELLS ARE PRESENT. TIN PIRES(ASCP) (CASE ELECTRONICALLY SIGNED 01 25 2019) ADEQUACY: SATISFACTORY ENDOCERVICAL/TRANSFORMATION ZONE COMPONENT PRESENT. SOURCE: THINPREP PAP HPV IF ASCUS, CERVICAL, IMAGED CLINICAL INFORMATION: HPV IF DIAGNOSIS OF ASCUS. , PAP HX LPS 01/2016 NEG, LMP 06/02/18 [Z12.4, Z34.83] Dennise Durham [facility] LAB CYTOLOGY ORDERABLES Final Result HISTORICAL TESTING LAB RESULTING AGENCY from Last 3 Months or Most Recently Relevant to Health Maintenance Care Teams Tape Folding Machine Operator Relationship Specialty Start Date End Date Marilou Lin MD [address] [place] [id number] PCP - General 01/07/24
[2025-06-09 11:35] VITALS: BP 90/48; PULSE 64; RESP 16; TEMP 36.6; O2SAT 95
== END 2025-06-09 11:36 | disposition home or self-care (01) ==
PROVIDERS: Emergency Provider Emergency Medicine; PCP Internal Medicine
DX: G43.909 Migraine, unspecified, not intractable, without status migrainosus (principal); Z87.19 Personal history of other diseases of the digestive system; Z79.899 Other long term (current) drug therapy; Z87.440 Personal history of urinary (tract) infections
CPT/HCPCS: 70450; 96374; 96375; 99284; J1200; J1885; J2405

== ENCOUNTER → 2025-06-09 10:09 | Outpatient (BNV) | payer OTHER, SELFPAY | PROVIDERS: PCP Internal Medicine; Visit Provider Radiology Diagnostic Radiology | DX: R51.9 Headache, unspecified (principal) | CPT/HCPCS: 70450 ==